=== PATIENT | female | born 1940 | race Caucasian/White ===

== ENCOUNTER → 2018-11-05 | Outpatient (REF) | payer MEDICARE, MEDICAID ==
[~2018-11-05] MED LIST: ADULT ASPIRIN L81 MG; ALEVE220 M2 PO; AMOXICILLIN/CL875 MG PO; BENZONATATE200 MG PO; CIPRO500 MG OR; CIPROFLOXACN500 MG PO; FISH OIL1000 MG PO; FLONASE NASAL50 MCG; LISINOPRIL10 MG PO; MULTI OR; PYRIDIUM200 MG OR; PYRIDIUM200 MG PO; SIMVASTATIN40 MG PO
[2018-11-05 13:15] LABS: HEMATOCRIT 44.3 % (37.0-47.0); HEMOGLOBIN 14.4 g/dl (12.0-16.0); IMMATURE GRANULOCYTES 0.3 % (0.0-5.0); MEAN CELL VOLUME 93.5 fL CALC (80.0-100.0); MEAN CORPUSCULAR HGB 30.4 pG CALC (26.0-32.0); MEAN CORPUSCULAR HGB CONC 32.5 g/L CALC (32.0-36.0); NEUT# 5.17 thou/uL (2.00-7.15); RED BLOOD COUNT 4.74 mill/uL (4.20-5.60); RED CELL DISTRI WIDTH 12.7 % (11.5-15.5)
== END | disposition home or self-care (01) ==
LOC: LAB 11:06
PROVIDERS: ATTEND Nurse Practitioner Family
DX: I10 Essential (primary) hypertension (principal); R19.7 Diarrhea, unspecified

== ENCOUNTER 2020-08-06 17:47 | Inpatient (IN) | payer MEDICARE, MEDICAID ==
[~2020-08-06] VITALS: Ht 160 cm; Wt 81.0 kg
--- NOTE | 2020-08-06 17:47 | NUR ---
PT TO ROOM VIA EMS. AOX4 SATURATED IN URINE.
--- NOTE | 2020-08-06 18:30 | NUR ---
TREATMENTS COMPLETED. PT BED BATH COMPLETED. CLEAN GOWN PLACED AND LINENS CHANGED.
--- NOTE | 2020-08-06 19:00 | NUR ---
GAVE REPORT TO AG NURSE AWARE OF UNCOMPLETE MED REC
[2020-08-06 19:06] LABS: HEMATOCRIT 44.8 % (37.0-47.0); HEMOGLOBIN 14.8 g/dl (12.0-16.0); IMMATURE GRANULOCYTES 0.2 % (0.0-5.0); MEAN CELL VOLUME 90.7 fL CALC (80.0-100.0); NEUT# 7.22 thou/uL (2.00-7.15); RED BLOOD COUNT 4.94 mill/uL (4.20-5.60); RED CELL DISTRI WIDTH 12.8 % (11.5-15.5)
[2020-08-06 19:31] LABS: ALBUMIN 4.2 g/dL (3.2-5.0); ALKALINE PHOSPHATASE 51 u/l (38-126); ANION GAP 16 (6-22 (CALC)); BUN 21 mg/dL (8-23); BUN/CREATININE RATIO 22 (12-20 (CALC)); CARBON DIOXIDE 22 mmol/l (22-30); CHLORIDE 99 mmol/l (95-108); CPK 398 u/l (30-165); ETHYL ALCOHOL 0 mg/dl (0-30); GFR 53 ML/MIN (>=60 (CALC)); GFR FOR AFR.AMER. > 60 ML/MIN (>=60 (CALC)); LIPASE 46 u/l (23-300); MAGNESIUM 1.6 mg/dL (1.6-2.3); POTASSIUM 4.6 mmol/l (3.5-5.1); SODIUM 132 mmol/l (137-146); TOTAL PROTEIN 7.8 g/dL (6.3-8.2)
[2020-08-06 19:32] LABS: SGOT/AST 53 u/l (9-36)
[2020-08-06 19:34] LABS: ACT PARTIAL THROMBO TIME 28.1 SECONDS (20.0-32.5); INTERNATIONAL NORMALIZED RATIO 1.1 RATIO (0.7-1.3); PROTHROMBIN TIME 11.2 SECONDS (9.0-12.5)
--- NOTE | 2020-08-06 20:23 | NUR ---
W/D SKIN SR NO ST T CHANGES A/OX3 SPEECH CLEAR LAVERN GUARDADO 2CMS
--- NOTE | 2020-08-06 21:35 | NUR ---
SR NO ECTOPY GCS REMAINS UNCHANGES AT 15 SPEECH CLEAR NO FOCAL DEFICITS
--- NOTE | 2020-08-06 22:23 | NUR ---
W/D SKIN SR NO ECTOPY SPEECH CLWEAR NO FOCAL DEFICITS GCS 15 MAEW
--- NOTE | 2020-08-06 23:08 | NUR ---
W/P/D SKIN DENIES PAIN MOVES HEAD WUITH NO DISCOMFORT SR NO ECTOPY
--- NOTE | 2020-08-07 00:36 | NUR ---
W/P/D SKIN IV NS INFUSING 175CC/HR WITH NO REMARK DENIES PAIN NO SOB
--- NOTE | 2020-08-07 01:24 | NUR ---
NASAL SWAB SPEC COLLECTED
[2020-08-07 01:52] LABS: URINE BILIRUBIN - DIPSTICK NEGATIVE (NEGATIVE); URINE BLOOD DIPSTICK MODERATE (NEGATIVE); URINE COLOR YELLOW; URINE GLUCOSE - DIPSTICK NEGATIVE (NEGATIVE); URINE KETONE 15 mg/dL (NEGATIVE); URINE PROTEIN - DIPSTICK 100 mg/dL (NEG-TRACE); URINE SPECIFIC GRAVITY >=1.030; URINE UROBILINOGEN - DIPSTICK 0.2 E.U./dL (0.2)
[2020-08-07 01:59] LABS: URINE NITRITE - DIPSTICK POSITIVE (Negative)
[2020-08-07 02:00] LABS: URINE LEUK ESTERASE NEGATIVE (NEGATIVE)
[2020-08-07 02:01] LABS: URINE BACTERIA MANY hpf; URINE EPITHELIAL CELLS MODERATE EPI/hpf (0-FEW)
--- NOTE | 2020-08-07 02:35 | NUR ---
PT INCONTINENT OF SM SOFT BROWN STOOL.PERICARE
--- NOTE | 2020-08-07 04:09 | NUR ---
report received from SARAH Montana RN
--- NOTE | 2020-08-07 04:16 | NUR ---
PHONE REPORT TO NURSE GIN
--- NOTE | 2020-08-07 04:25 | NUR ---
PT TRANSPORTED TO ICU VIA STRETCHER ON TELE IN STABLE CONDITION
--- NOTE | 2020-08-07 04:52 | NUR ---
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
[2020-08-07 05:00] VITALS: BP 151/72
--- NOTE | 2020-08-07 06:45 | NUR ---
RECIEVED REPORT FROM ALEKSEY GREENFIELD. ASSUMED PT CARE.
[2020-08-07 08:30] VITALS: BP 168/73
--- NOTE | 2020-08-07 08:30 | NUR ---
PT A&OX4, ABLE TO MAKE NEEDS KNOWN. RESPIRATIONS EVEN/UNLABOERED, SA02@88% ON 3LPM/NC. LS CLEAR/DIMINISHED. ABDOMEN SOFT, NON-TENDER. PT INC OF B&B WITH PUREWICK IN PLACE. 20G TO RFA INFUSING NS@100ML/HR, NO S/S OF INFILTRATION. PT REMAIN SR ON TELEMETRY, DENIES CP, SOB OR DISTRESS AT THIS TIME. COVID PRECAUTIONS IN PLACE. CALL LIGHT IN REACH. WILL MONITOR.
--- NOTE | 2020-08-07 09:34 | NUR ---
DR. DE LEON AT BEDSIDE FOR ASSESSMENT AND TO DISCUSS PLAN OF CARE. NEW ORDERS RECIEVED. PT REQUESTED TO CHANGE STATUS TO DNR. REQUEST GRANTED.
[2020-08-07 10:25] LABS: HEMATOCRIT 50.4 % (37.0-47.0); HEMOGLOBIN 15.6 g/dl (12.0-16.0); IMMATURE GRANULOCYTES 0.2 % (0.0-5.0); MEAN CORPUSCULAR HGB 30.1 pG CALC (26.0-32.0); NEUT# 6.84 thou/uL (2.00-7.15); RED BLOOD COUNT 5.18 mill/uL (4.20-5.60)
[2020-08-07 10:27] LABS: MEAN CELL VOLUME 97.3 fL CALC (80.0-100.0)
[2020-08-07 10:29] LABS: ANION GAP 16 (6-22 (CALC)); BUN 20 mg/dL (8-23); BUN/CREATININE RATIO 23 (12-20 (CALC)); CARBON DIOXIDE 20 mmol/l (22-30); CHLORIDE 103 mmol/l (95-108); CREATININE 0.9 mg/dL (0.5-1.0); GFR 60 ML/MIN (>=60 (CALC)); GFR FOR AFR.AMER. > 60 ML/MIN (>=60 (CALC)); SODIUM 135 mmol/l (137-146)
--- NOTE | 2020-08-07 10:30 | NUR ---
CXR AT BEDSIDE, PT TOLERATED WELL.
--- NOTE | 2020-08-07 11:49 | NUR ---
PT RESTING IN BED, MEAL TRAY SET UP. NO DISTREE NOTED.
--- NOTE | 2020-08-07 12:09 | NUR ---
LAB AT BEDSIDE FOR BLOOD DRAW. PT TOLERATED WELL.
--- NOTE | 2020-08-07 13:24 | NUR ---
FAMILY CALLED, PT GIVEN PORTABLE PHONE.
--- NOTE | 2020-08-07 13:38 | NUR ---
O.T. SCREENED PATIENT AND PATIENT MAY BENEFIT FROM P.T. AND O.T. EVAL ONCE MEDICALLY STABLE.
--- NOTE | 2020-08-07 14:39 | NUR ---
PT AT BEDSIDE FOR THERAPY CONSULT.
--- NOTE | 2020-08-07 15:15 | NUR ---
PT C/O NON-RADIATING CP 12/19. EKG ORDERED.
--- NOTE | 2020-08-07 15:19 | NUR ---
REPORT RECEIVED FROM EILEENRN
--- NOTE | 2020-08-07 15:42 | NUR ---
EKG, NSR. REPORT CALLED TO TAMAR MORA. PT TO BE TRANSFERRED TO [facility] RM#[id number]
--- NOTE | 2020-08-07 16:25 | NUR ---
PT ARRIVED TO MED/SURG ROOM 283 IN STABLE CONDITION VIA WHEELCHAIR ACCOMPANIED BY SANGEETHA SAVAGE;PT AMBULATED WITH A WEAK GAIT TO BEDSIDE;WT AND VS OBTAINED BY SANGEETHA MAURICE;PT A&O X3, ORIENTED TO ROOM AND CALL LIGHT SYSTEM;PT DENIES ANY CURRENT PAIN OR DISCOMFORTS,PAIN SCALE AND REPORTING EDUCATED;RESPIRATIONS SHALLOW ON O2 @ 3L VIA NC, PT IS NOT HOME OXYGEN DEPENDENT;NON-PRODUCTIVE COUGH AT TIMES;ABDOMEN DISTENDED/SOFT ON PALPATION AND ACTIVE IN ALL 4 QUADRANTS,LAST BM 08/07/20;PUREWICK CATHETER IN PLACE FOR INCONTINENCE;WEAK PEDAL PULSES;ABRASION NOTED RT ELBOW AND RIGHT KNEE, MULTIPLE BRUSIES NOTED THROUGHOUT;EMS # 20G TO RFA INFUSING NS @ 125ML/HR,SITE APPEARS HEALTHY;TELE MONITORING IN PLACE;PT REMAINS IN AIR/CONTACT PRECAUTIONS FOR COVID19 TESTING;PT DENIES ANY ADDITIONAL NEEDS AT THIS TIME AND IS ENCOURAGED TO CALL FOR ASSISTANCE IF NEEDED;FALL PRECAUTIONS IN PLACE WITH BED IN THE LOWEST POSITION AND CALL LIGHT IN REACH;WILL CONTINUE TO MONITOR
[2020-08-07 16:58] VITALS: BP 171/71
[2020-08-07 17:23] VITALS: BP 160/79
--- NOTE | 2020-08-07 19:27 | NUR ---
PT RESTING IN BED, NO SIGNS OF DISTRESS NOTED, RESP EVEN AND UNLABORED. DISCUSSED POC, PT ALERT AND ORIENTED X3, NOTED MULTIPLE BRUISES TO EXTREMETIES. SKIN TEAR TO R ELBOW. ASSESSMENT COMPLETED, CALL LIGHT IN REACH, PT MEDICATED PER MAR. CALL LIGHT IN REACH,CONTINUE TO MONITOR.
[2020-08-07 19:50] VITALS: BP 137/83
--- NOTE | 2020-08-08 | NUR ---
REPORT RECEIEVED FOR ALEKSEY BENITEZ
[2020-08-08 00:10] VITALS: BP 175/80
--- NOTE | 2020-08-08 03:49 | NUR ---
PT IS LAYING IN BED IN SEMI CAMPBELL, SLEEPING. NO S/SX OF DISTRESS OR DISCOMFORT OBSERVED AT THIS TIME, WILL CONITINUE TO MONITOR FOR COMFORT AND SAFETY.
[2020-08-08 03:56] VITALS: BP 168/76
[2020-08-08 05:33] LABS: HEMOGLOBIN 14.4 g/dl (12.0-16.0); IMMATURE GRANULOCYTES 0.4 % (0.0-5.0); MEAN CELL VOLUME 92.7 fL CALC (80.0-100.0); MEAN CORPUSCULAR HGB 30.1 pG CALC (26.0-32.0); MEAN CORPUSCULAR HGB CONC 32.5 g/dL CAL (32.0-36.0); NEUT# 6.24 thou/uL (2.00-7.15); RED BLOOD COUNT 4.78 mill/uL (4.20-5.60); RED CELL DISTRI WIDTH 12.6 % (11.5-15.5)
[2020-08-08 05:40] LABS: HEMATOCRIT 44.3 % (37.0-47.0)
[2020-08-08 05:46] LABS: ALBUMIN 3.4 g/dL (3.2-5.0); ALKALINE PHOSPHATASE 48 u/l (38-126); ANION GAP 13 (6-22 (CALC)); BILIRUBIN, TOTAL 0.8 mg/dL (0.0-1.4); BUN 15 mg/dL (8-23); BUN/CREATININE RATIO 20 (12-20 (CALC)); CARBON DIOXIDE 21 mmol/l (22-30); CHLORIDE 102 mmol/l (95-108); CREATININE 0.7 mg/dL (0.5-1.0); GFR > 60 ML/MIN (>=60 (CALC)); GFR FOR AFR.AMER. > 60 ML/MIN (>=60 (CALC)); POTASSIUM 4.2 mmol/l (3.5-5.1); SGOT/AST 59 u/l (9-36); SODIUM 131 mmol/l (137-146); TOTAL PROTEIN 6.3 g/dL (6.3-8.2)
[2020-08-08 08:09] VITALS: BP 167/61
[2020-08-08 11:05] VITALS: BP 157/63
[2020-08-08 15:00] VITALS: BP 142/56
[2020-08-08 19:35] VITALS: BP 149/60
--- NOTE | 2020-08-08 20:00 | NUR ---
RECIEVED REPROT FROM ELLA. PT LAYING IN SEMI-FOWLERS, UPON ENTERING ROOM. INTRODUCED SELF TO PT AND POC DISCUSSED. PT IS A/O X3. ASSESSMENT COMPLETED & VS OBTAINED. PT ON O2 @ 3L/MIN VIA NC. RESPIRATION ARE EVEN & NON LABORED. PT REPORTS SOB ON EXCERTION. TELE MONITORING D/C TODAY- ORDERED MD ORDER VERIFIED. NORMAL S1& S2 HEART SOUNDS W/ REGULAR RATE & RHYTHM. ACTIVE BS X 4 QUADS- HAD BM DURING SHIFT CHANGE- LOOSE W/ FOUL SMELL NOTED- STOOL SAMPLE COLLECT AND SENT TO LAB FOR TESTING- RESULTS PENDING. BILAT RADIAL & PEDAL PULSES ARE PRESENT, EQUAL & STRONG. #20G PIV IN LFA W/ NS @ 125 ML/HR- SITE IS PATENT- CLEAN, DRY, AND INTACT. NO S/SX OF DISTRESS OR DISCOMFORT EXPRESSED OR OBSERVE. ALL SAFETY PRECAUTIONS AND ISOLATION ARE IN PLACE, CALL LIGHT IN REACH. WILL CONTINUE TO MONITOR FOR COMFORT AND SAFETY.
[2020-08-09 03:50] VITALS: BP 158/65
--- NOTE | 2020-08-09 04:00 | NUR ---
PT RESTING IN BED, NO S/SX OF DISTRESS OR DISCOMFORT EXPRESSE OR OBSERVED AT THIS TIME, WILL CONTINUE TO MONITOR FOR COMFORT AND SAFETY.
--- NOTE | 2020-08-09 08:30 | NUR ---
PT RESTING IN BED gOT OOB TO CHAIR WITH 2 ASSISTS vss NO COMPLAINTS. DENIES CP OR sob
--- NOTE | 2020-08-09 12:00 | NUR ---
PT oob TO CHAIR HAD LARGE AMOUNT OF STOOL IN CHAIR AND FLOOR c-DIFF SENT TO LAB PT DENIES CP OR SOB RIGHT ARM WITH LARGE REDDENED SWOLLEN AREA ----HAD IV INFILTRATE YESTERDAY.
[2020-08-09 14:55] VITALS: BP 127/61
[2020-08-09 19:45] VITALS: BP 114/60
--- NOTE | 2020-08-09 20:20 | NUR ---
Nurse and HORIZONTAL BORING MILL OPERATOR cleaned pt and changed linen. Pt resting in bed without S/S of discomfort.
--- NOTE | 2020-08-10 00:27 | NUR ---
Pt cleaned up by BOILING HOUSE HAND after having BM, now resting comfortably.
--- NOTE | 2020-08-10 03:27 | NUR ---
Pt was awake when nurse rounded, asked for water refill. Nurse helped her with water and she settled back in to rest.
[2020-08-10 05:19] LABS: HEMATOCRIT 40.3 % (37.0-47.0); HEMOGLOBIN 13.1 g/dl (12.0-16.0); IMMATURE GRANULOCYTES 0.4 % (0.0-5.0); MEAN CELL VOLUME 90.2 fL CALC (80.0-100.0); MEAN CORPUSCULAR HGB 29.3 pG CALC (26.0-32.0); MEAN CORPUSCULAR HGB CONC 32.5 g/dL CAL (32.0-36.0); NEUT# 3.22 thou/uL (2.00-7.15); RED BLOOD COUNT 4.47 mill/uL (4.20-5.60); RED CELL DISTRI WIDTH 12.3 % (11.5-15.5)
[2020-08-10 05:29] VITALS: BP 153/62
[2020-08-10 05:33] LABS: ALKALINE PHOSPHATASE 48 u/l (38-126); BUN 15 mg/dL (8-23); BUN/CREATININE RATIO 18 (12-20 (CALC)); C-REACTIVE PROTEIN 4.9 mg/dL (0-0.9); CARBON DIOXIDE 24 mmol/l (22-30); CHLORIDE 102 mmol/l (95-108); CREATININE 0.8 mg/dL (0.5-1.0); GFR > 60 ML/MIN (>=60 (CALC)); GFR FOR AFR.AMER. > 60 ML/MIN (>=60 (CALC)); SGOT/AST 71 u/l (9-36); SODIUM 132 mmol/l (137-146); TOTAL PROTEIN 5.4 g/dL (6.3-8.2)
[2020-08-10 05:36] LABS: ALBUMIN 2.7 g/dL (3.2-5.0); ANION GAP 9 (6-22 (CALC)); BILIRUBIN, TOTAL 0.4 mg/dL (0.0-1.4); POTASSIUM 3.3 mmol/l (3.5-5.1)
[2020-08-10 08:00] VITALS: BP 163/60
--- NOTE | 2020-08-10 09:00 | NUR ---
PT AWAKE, ALERT, ORIENTED X 3. LUNGS CLEAR BUT DECREASED THROUGHOUT, USES 2 LPM NC. NO COMPLAINT SHORTNESS OF BREATH. PT IS INCONTINENT OF URINE, CHANGED NEEDED BY CAR INSPECTOR.
[2020-08-10 15:20] VITALS: BP 134/60
--- NOTE | 2020-08-10 18:33 | NUR ---
IVF TURNED DOWN TO KVO. TYLENOL PROVIDED ORDERED FOR RIGHT SHOULDER ARTHRITIS PAIN.
[2020-08-10 20:00] VITALS: BP 145/78
[2020-08-11 04:00] VITALS: BP 170/72
[2020-08-11 05:28] LABS: HEMATOCRIT 42.7 % (37.0-47.0); HEMOGLOBIN 14.1 g/dl (12.0-16.0); MEAN CELL VOLUME 89.1 fL CALC (80.0-100.0); MEAN CORPUSCULAR HGB 29.4 pG CALC (26.0-32.0); RED BLOOD COUNT 4.79 mill/uL (4.20-5.60); RED CELL DISTRI WIDTH 12.2 % (11.5-15.5)
[2020-08-11 05:41] LABS: ANION GAP 13 (6-22 (CALC)); BUN 9 mg/dL (8-23); BUN/CREATININE RATIO 14 (12-20 (CALC)); CARBON DIOXIDE 22 mmol/l (22-30); CHLORIDE 103 mmol/l (95-108); CREATININE 0.7 mg/dL (0.5-1.0); GFR > 60 ML/MIN (>=60 (CALC)); GFR FOR AFR.AMER. > 60 ML/MIN (>=60 (CALC)); SODIUM 134 mmol/l (137-146)
--- NOTE | 2020-08-11 07:20 | NUR ---
REPORT RECEIVED FROM ALEKSEY LAWSON
[2020-08-11 09:14] VITALS: BP 158/88
--- NOTE | 2020-08-11 09:15 | NUR ---
PT RESTING IN SEMI FOWLERS POSITION,A&O X3;VS OBTAINED AND ASSESSMENT COMPLETED;PT DENIES ANY CURRENT PAIN OR DISCOMFORTS,PAIN SCALE AND REPORTING EDUCATED;RESPIRATIONS SHALLOW ON O2 @ 2L VIA NC, DIMINISHED LUNG SOUNDS NOTED;NON-PRODUCTIVE COUGH;ABDOMEN SOFT ON PALPATION AND ACTIVE IN ALL 4 QUADRANTS;WEAK PEDAL PULSES;#20G TO LEFT HAND INFUSING NS WITH EASE PER ORDER;PT REMAINS IN AIR/CONTACT PRECAUTIONS DUE TO COVID 19 DX;PT DENIES ANY ADDITIONAL NEEDS AND IS ENCOURAGED TO CALL FOR ASSISTANCE IF NEEDED;CALL LIGHT IN REACH;WILL CONTINUE TO MONITOR
--- NOTE | 2020-08-11 11:45 | NUR ---
08/10/2020 Patient is seen for follow up Tx. Her O2 sats are 96% on oxygen. The patient is able to sit EOB but with max assist of 1. She attempted to stand x 3 but is absolutely unable. 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 She is max assist and her spouse is not in good health compromising a discharge plan for home at this time. She is also limited by pain from her recent fall
--- NOTE | 2020-08-11 11:50 | NUR ---
PT RESTING IN SEMI FOWLERS POSITION;RESPIRATIONS REMAIN EVEN AND UNLABORED ON O2 @ 2L VIA NC;PT REPORTS LOWER BACK PAIN RATING 7/10 ON THE PAIN SCALE AND MEDICATED WITH SCHEDULED TYLENOL 650MG PO;IV FLUIDS INFUSING WITH EASE PER ORDER AND ABX STARTED AT THIS TIME;PT DENIES ANY ADDITIONAL NEEDS;CALL LIGHT IN REACH;WILL CONTINUE TO MONITOR
[2020-08-11 14:55] VITALS: BP 151/70
--- NOTE | 2020-08-11 15:06 | NUR ---
PT note Patient is seen for therex to the bilateral LEs including calf stretch and resisted knee/ hip extension x 20 reps each. She has a lot of crepitus in the right knee she tells me was not occuring before her fall. She was able to transfer to sitting and then to full stand x 1 but with max assist of 1. Although O2 is in place she was dyspneic x 2 and had to return to semi fowlers position to recover. Her Am pac improved to 9 and she was able to achieve standing despite dyspnea
--- NOTE | 2020-08-11 16:30 | NUR ---
PT RESTING IN SEMI FOWLERS POSITION;RESPIRATIONS EVEN AND UNLABORED ON O2 @ 2L VIA NC;PT DENIES ANY CURRENT PAIN OR DISCOMFORTS;IV FLUIDS INFUSING WITH EASE;PT RE-POSITIONED FOR COMFORT;PT DENIES ANY ADDITIONAL NEEDS AT THIS TIME;ENCOURAGED TO CALL FOR ASSISTANCE IF NEEDED;CALL LIGHT IN REACH;WILL CONTINUE TO MONITOR
[2020-08-11 19:30] VITALS: BP 153/66
--- NOTE | 2020-08-11 20:00 | NUR ---
PATIENT RESTING IN BED AT THIS TIME-AWAKE ALERT AND ORIENTED. O2 VIA NASAL CANNULA IN PLACE AT 2LPM. IVF PATENT AND INFUSING IN LEFT HAND SITE AT 20CC/HR. SITE IS HEALTHY AT THIS TIME. PATIENT ON ISOLATION IN NEG PRESSURE ROOM FOR COVID. CALL LIGHT IN REACH. WILL CONT TO MONITOR.
--- NOTE | 2020-08-12 01:14 | NUR ---
PATIENT RESTING IN BED-CAN'T SLEEP DUE TO GENERALIZED DISCOMFORT. MEDICATED WITH LORTAB 5/325MG PO. PATIENT REMAINS ON ISOLATION IN NEG PRESSURE ROOM FOR COVID. IVF PATENT AND INFUSING VIA LEFT HAND SITE AT KVO RATE. CALL LIGHT IN REACH. WILL CONT TO MONITOR.
[2020-08-12 04:00] VITALS: BP 158/70
--- NOTE | 2020-08-12 04:51 | NUR ---
PATIENT INCONT OF URINE. PERICARE PROVIDED WITH SOAP AND WATER. BARRIER CREAM APPLIED TO REDDENED PERINEAL AREA. LINENS WERE CHANGED. PATIENT REMAINS WITH O2 VIA NASAL CANNULA AT 2LPM.IV SITE TO LEFT HAND INTACT WITH IVF AT KVO RATE OF 20CC/HR. SITE REMAINS HEALTHY. REMAINS ON ISOLATION IN NEG PRESSURE ROOM. CALL LIGHT IN REACH. WILL CONT TO MONITOR.
[2020-08-12 05:27] LABS: HEMATOCRIT 40.2 % (37.0-47.0); HEMOGLOBIN 13.6 g/dl (12.0-16.0); IMMATURE GRANULOCYTES 0.4 % (0.0-5.0); MEAN CELL VOLUME 87.2 fL CALC (80.0-100.0); MEAN CORPUSCULAR HGB 29.5 pG CALC (26.0-32.0); MEAN CORPUSCULAR HGB CONC 33.8 g/dL CAL (32.0-36.0); NEUT# 4.51 thou/uL (2.00-7.15); RED BLOOD COUNT 4.61 mill/uL (4.20-5.60); RED CELL DISTRI WIDTH 12.1 % (11.5-15.5)
[2020-08-12 05:48] LABS: ALBUMIN 2.9 g/dL (3.2-5.0); ALKALINE PHOSPHATASE 58 u/l (38-126); ANION GAP 9 (6-22 (CALC)); BILIRUBIN, TOTAL 0.5 mg/dL (0.0-1.4); BUN 8 mg/dL (8-23); BUN/CREATININE RATIO 12 (12-20 (CALC)); C-REACTIVE PROTEIN 6.1 mg/dL (0-0.9); CARBON DIOXIDE 27 mmol/l (22-30); CHLORIDE 102 mmol/l (95-108); CREATININE 0.7 mg/dL (0.5-1.0); GFR > 60 ML/MIN (>=60 (CALC)); GFR FOR AFR.AMER. > 60 ML/MIN (>=60 (CALC)); POTASSIUM 3.6 mmol/l (3.5-5.1); SGOT/AST 65 u/l (9-36); SODIUM 134 mmol/l (137-146); TOTAL PROTEIN 5.6 g/dL (6.3-8.2)
--- NOTE | 2020-08-12 07:20 | NUR ---
REPORT RECEIVED FROM ALEKSEY ADAMES
[2020-08-12 08:45] VITALS: BP 147/74
--- NOTE | 2020-08-12 08:45 | NUR ---
PT RESTING IN SEMI FOWLERS POSITION,A&O X3;VS OBTAINED AND ASSESSMENT COMPLETED;PT DENIES ANY CURRENT PAIN OR DISCOMFORTS,PAIN SCALE AND REPORTING EDUCATED;RESPIRATIONS SHALLOW ON O2 @ 2L VIA NC, NON-PRODUCTIVE COUGH AT TIMES;ABDOMEN SOFT ON PALPATION AND ACTIVE IN ALL 4 QUADRANTS;PT INCONTINENT OF BOWEL AND BLADDER;WEAK PEDAL PULSES;REDDENING NOTED TO COCCYX, SKIN OTHERWISE INTACT;#20G TO LEFT HAND INFUSING NS @ 20ML/HR,SITE APPEARS HEALTHY;PT REMAINS IN AIR/CONTACT PRECAUTIONS DUE TO COVID19 DX;PT DENIES ANY ADDITIONAL NEEDS AND IS ENCOURAGED TO CALL FOR ASSISTANCE IF NEEDED;FALL PRECAUTIONS IN PLACE WITH BED IN THE LOWEST POSITION AND CALL LIGHT IN REACH;WILL CONTINUE TO MONITOR
--- NOTE | 2020-08-12 11:50 | NUR ---
RESP PCR NASAL SWAB SENT TO LAB AT THIS TIME.
--- NOTE | 2020-08-12 11:55 | NUR ---
PT RESTING IN SEMI FOWLERS POSITION;RESPIRATIONS EVEN AND UNLABORED ON O2 @ 2L VIA NC;PT REPORTS COUGH AND REQUESTS COUGH MEDICATION, KELLY ANRP NOTIFIED OF REQUEST;IV SITE PATENT AND ABX STARTED AT THIS TIME;PT DENIES ANY ADDITIONAL NEEDS AND IS ENCOURAGED TO CALL FOR ASSISTANCE IF NEEDED;CALL LIGHT IN REACH;WILL CONTINUE TO MONITOR
--- NOTE | 2020-08-12 12:37 | NUR ---
PT MEDICATED WITH PRN ROBITUSSIN AC 10ML PO AT THIS TIME FOR COUGH;WILL CONTINUE TO MONITOR
[2020-08-12 15:15] VITALS: BP 153/66
--- NOTE | 2020-08-12 15:35 | NUR ---
PHYSICAL THERAPY AT BEDSIDE
--- NOTE | 2020-08-12 16:25 | NUR ---
PT LYING SUPINE IN BED. O2 85% ON 1L AT REST. O2 INCREASED TO 2L, SATS 89-90% PT STATES SHE IS MORE SHORT OF BREATH AND COUGHING A LOT. ATTEMPTED TO SIT PT ON EDGE OF BED. PT UNABLE TO COMPLETE WITH MAX ASSISTANCE. O2 DROPPED TO 85% ASSISTED PT BACK INTO SUPINE. TEMP 99.3. INFORMED NURSING OF FINDINGS. SN AT BEDSIDE WHEN THERAPIST LEFT.
--- NOTE | 2020-08-12 16:50 | NUR ---
PT RESTING IN SEMI FOWLERS POSITION;RESPIRATIONS EVEN AND UNLABORED ON 02 @ 2L VIA NC;PT DENIES ANY CURRENT PAIN OR DISCOMFORTS;IV SITE PATENT INFUSING NS WITH EASE PER ORDER;PT DENIES ANY ADDITIONAL NEEDS AT THIS TIME AND IS ENCOURAGED TO CALL FOR ASSISTANCE IF NEEDED;CALL LIGHT IN REACH;WILL CONTINUE TO MONITOR
[2020-08-12 19:00] VITALS: BP 173/75
--- NOTE | 2020-08-12 20:00 | NUR ---
PATIENT RESTING IN BED AT THIS TIME ON ISOLATION IN NEG PRESSURE ROOM FOR COVID. AWAKE ALERT AND ORIENTED TO PERSON AND PLACE. MORE ALERT TONIGHT.INCONT OF URINE AND CLEANED UP BY POLE SHAVER AND BARRIER CREAM APPLIED TO BUTTOCKS AND PERINEAL AREA FOR REDNESS. O2 VIA NASAL CANNULA IN PLACE AT 2LPM. IV SITE TO LEFT HAND INTACT WITH IVF PATENT AND INFUSING AT 20CC/HR. SITE REMAINS HEALTHY AT THIS TIME. SAFETY PRECAUTIONS REINFORCED. CALL LIGHT IN REACH. WILL CONT TO MONITOR.
--- NOTE | 2020-08-12 23:00 | NUR ---
PATIENT RESTING IN BED AT THIS TIME WITH HOB ELEVATED. EASY TO AROUSE. PATIENT WITH NON-PRODUCTIVE COUGH AT THIS TIME. O2 VIA NASAL CANNULA IN PLACE. PATIENT MEDICATED WITH DECADROM 6MG PO ORDERED AND AZITHROMYCIN 500MG IVPB HUNG ORDERED VIA LEFT HAND IV SITE. SITE REMAINS HEALTHY AT THIS TIME. MEDICATED FOR COUGH WITH ROBITUSSIN AC ORDERED AND WITH LORTAB 5/325 FOR GENERALIZED DISCOMFORT. PATIENT REMAINS ON ISOLATION IN NEG PRESSURE ROOM FOR COVID. SAFETY PRECAUTIONS REINFORCED. CALL LIGHT IN REACH. WILL CONT TO MONITOR,.
[2020-08-13] VITALS (11 sets, daily range): BP systolic 132–200; BP diastolic 62–94
--- NOTE | 2020-08-13 01:54 | NUR ---
PATIENT RESTING IN BED AT THIS TIME WITH O2 VIA NASAL CANNULA IN PLACE AT 2LPM-O2 SAT IS 85%. PATIENT IS AWAKE ALERT AND ORIENTEDX2. O2 INCREASED UP TO 5LPM VIA NASAL CANNULA-O2 SAT IS NOW AT 89-90%. RT CALLED TO EVAL PATIENT. PATIENT CONT TO HAVE NON-PRODUCTIVE COUGH. LUNGS ARE CLEAR BUT DIMINISHED-POOR INSPIRATORY EFFORT. INSTRUCTED PATIENT ON USE OF IS-WILL NEED REINFORCEMENT. PATIENT INCONT OF LARGE AMT OF URINE. PATIENT WAS GIVEN NALLELY-CARE WITH SOAP AND WATER AND BARRIER CREAM WAS APPLIED TO REDDENED AREAS. PADS WERE CHANGED. PATIENT WAS REPOSITIONED. ENCOURAGED INCREASED ACTIVITY. SAFETY PRECAUTIONS REINFORCED. CALL LIGHT IN REACH. WILL CONT TO MONITOR.
--- NOTE | 2020-08-13 02:22 | NUR ---
RT HERE AND JN MEEHAN. O2 WAS CHANGED FROM O2 NASAL CANNULA TO O2 HIGH FLOW AT 8LPM-O2 SAT 93% AT THIS TIME. WILL CONT TO FOLLOW.
--- NOTE | 2020-08-13 04:50 | NUR ---
PATIENT RESTING IN BED AT THIS TIME WITH O2 VIA NASAL CANNULA IN PLACE AT 8LPM HIGH FLOW. O2 SAT IS 94% WHEN AWAKE. WHEN PATIENT STARTS TO DOOZE OFF O2 SATS DECREASES INTO UPPER 80"S. UNABLE TO TITRATE DOWN AT THIS TIME. PATIENT IS AFEBRILE AT THIS TIME. IVF PATENT AND INFUSING VIA LEFT HAND SITE AT 20CC/HR. PATIENT IS DRY AT THIS TIME. LABS WERE DRAWN. SAFETY PRECAUTIONS REINFORCED. CALL LIGHT IN REACH. WILL CONT TO MONITOR.
[2020-08-13 05:27] LABS: HEMATOCRIT 41.8 % (37.0-47.0); HEMOGLOBIN 14.1 g/dl (12.0-16.0); MEAN CELL VOLUME 87.3 fL CALC (80.0-100.0); MEAN CORPUSCULAR HGB 29.4 pG CALC (26.0-32.0); MEAN CORPUSCULAR HGB CONC 33.7 g/dL CAL (32.0-36.0); RED BLOOD COUNT 4.79 mill/uL (4.20-5.60); RED CELL DISTRI WIDTH 12.1 % (11.5-15.5)
[2020-08-13 05:33] LABS: ANION GAP 12 (6-22 (CALC)); BUN 8 mg/dL (8-23); BUN/CREATININE RATIO 13 (12-20 (CALC)); CARBON DIOXIDE 28 mmol/l (22-30); CHLORIDE 99 mmol/l (95-108); CREATININE 0.6 mg/dL (0.5-1.0); GFR > 60 ML/MIN (>=60 (CALC)); GFR FOR AFR.AMER. > 60 ML/MIN (>=60 (CALC)); POTASSIUM 3.8 mmol/l (3.5-5.1); SODIUM 136 mmol/l (137-146)
--- NOTE | 2020-08-13 06:55 | NUR ---
REPORT RECEIVED FROM ALEKSEY ADAMES.
--- NOTE | 2020-08-13 08:10 | NUR ---
PT RESTING IN SEMI FOWLERS POSITION,A&O X3;VS OBTAINED AND ASSESSMENT COMPLETED, CURRENT BP 175/76 HR 80;ALL MORNING MEDICATIONS ADMINISTERED AT THIS TIME;PT DENIES ANY CURRENT PAIN OR DISCOMFORTS,PAIN SCALE AND REPORTING EDUCATED;RESPIRATIONS SHALLOW ON O2 @ 8L HIGH FLOW NC, NON-PRODUCTIVE COUGH NOTED;PT DEMONSTRATED PROPER USE OF I.S. AND ENCOURAGED TO USE 10X PER HOUR;PT MEDICATED WITH PRN ROBITUSSIN AC PER REQUEST;ABDOMEN SOFT ON PALPATION AND ACTIVE IN ALL 4 QUADRANTS;PT INCONTINENT OF BOWEL AND BLADDER, REDDENING NOTED TO COCCYX;WEAK PEDAL PULSES;#20G TO LEFT HAND INFUSIG NS @ 20ML/HR,SITE APPEARS HEALTHY;PT DENIES ANY ADDITIONAL NEEDS AT THIS TIME AND IS ENCOURAGED TO CALL FOR ASSISTANCE IF NEEDED;PT REMAINS IN AIR/CONTACT PRECAUTIONS FOR COVID19 DX;CALL LIGHT IN REACH;WILL CONTINUE TO MONITOR
--- NOTE | 2020-08-13 10:05 | NUR ---
PT RESTING IN SEMI FOWLERS POSITION;VS RE-CHECK RESULTING IN BP OF 156/94 HR 85 O2 93% ON O2 @ 8L HIGH FLOW NC;PT DENIES ANY CURRENT PAIN OR DISCOMFORTS;#20G STARTED TO RAC ON FIRST ATTEMPT BY THIS WRITTER FOR ORDERED CTA,PT TOLERATED WELL;PT DENIES ANY ADDITIONAL NEEDS;ENCOURAGED TO CALL FOR ASSISTANCE IF NEEDED;CALL LIGHT IN REACH;WILL CONTINUE TO MONITOR
--- NOTE | 2020-08-13 10:30 | NUR ---
PHYSICAL THERAPY AT BEDSIDE WORKING WITH PT
--- NOTE | 2020-08-13 10:45 | NUR ---
PT TRANSPORTED TO [facility] IN STABLE CONDITION VIA HOSPITAL BED ACCOMPANIED BY SANGEETHA MAURICE AND SANGEETHA LAWRENCE
--- NOTE | 2020-08-13 11:15 | NUR ---
Patient is seen for bed mobility including rolling STS. She is also seen for repeated sit to stand. She was only able to perfrom 3 reps and was limited by dyspnea. She is also limited by her left hemiplegia and is unable to raise her left arm. She demonstrated a strong cough but without secretion clearance. She requested BTB and was returned with max assist. Am Pac is unchanged and she would do well in [facility] for rehab
--- NOTE | 2020-08-13 11:15 | NUR ---
PT RETURNED BACK FROM XRAY IN STABLE CONDITION VIA HOSPITAL BED ACCOMPANIED BY SANGEETHA LAWRENCE AND SANGEETHA MAURICE;PT RE-POSITIONED INTO BED FOR COMFORT;IV SITE TO RAC FLUSHED AND PATENT NS STARTED @ 20ML/HR PER ORDER;#20G TO LEFT HAND REMOVED DUE TO EXPIRATION DATE WITH CATHETER INTACT;RESPIRATIONS REMAIN SHALLOW ON O2 @ 8L VIA HIGH FLOW NC, SATS 93% AT THIS TIME;PT DENIES ANY ADDITIONAL NEEDS;ENCOURAGED TO CALL FOR ASSISTANCE IF NEEDED;FALL PRECAUTIONS REMAIN IN PLACE WITH BED IN THE LOWEST POSITION AND CALL LIGHT IN REACH;WILL CONTINUE TO MONITOR
--- NOTE | 2020-08-13 12:20 | NUR ---
PT RESTING IN SEMI FOWLERS POSITION;RESPIRATIONS SHALLOW ON O2 @ 8L HIGH FLOW NC, O2 SATS MAINTAIN LOW 90'S;PT DENIES ANY CURRENT PAIN OR DISCOMFORTS;IV FLUIDS INFUSING WITH EASE TO RAC AND ABX STARTED AT THIS TIME;VS OBTAINED BP 200/69 HR 85 T 98.4 O2 92%;KELLY ANRP NOTIFIED OF ELEVATED BP;PT DENIES ANY ADDITIONAL NEEDS AT THIS TIME;ENCOURAGED TO CALL FOR ASSISTANCE IF NEEDED;FALL PRECAUTIONS IN PLACE WITH CALL LIGHT IN REACH;WILL CONTINUE TO MONITOR
--- NOTE | 2020-08-13 14:48 | NUR ---
RE-ASSESSMENT OF PT BLOOD PRESSURE RESULTING IN 171/89 HR 82, PT ASYMPTAMATIC AT THIS TIME;PT TO BE MEDICATED WITH PRN APRESOLINE 10MG IVP BY ALEKSEY BARKER;WILL CONTINUE TO MONITOR FOR EFFECTIVENESS
--- NOTE | 2020-08-13 16:10 | NUR ---
PT RESTING IN SEMI FOWLERS POSITION;RESPIRATIONS REMAIN SHALLOW ON O2 @ 8L HIGH FLOW NC;PT DENIES ANY CURRENT PAIN OR DISCOMFORTS;IV FLUIDS INFUSING WITH EASE TO RAC;BP RE-CHECK 152/67 HR 88;PT DENIES ANY ADDITIONAL NEEDS AND IS ENCOURAGED TO CALL FOR ASSISTANCE IF NEEDED;CALL LIGHT IN REACH;WILL CONTINUE TO MONITOR
--- NOTE | 2020-08-13 17:35 | NUR ---
PT RESTING IN SEMI FOWLERS POSITION;RESPIRATIONS EVEN AND UNLABORED ON O2 @ 8L VIA NC, PT MEDICATED WITH PRN ROBITUSSIN AC PO AT THIS TIME;BP RE-CHECK 161/34;PT DENIES ANY ADDITIONAL NEEDS;ENCOURAGED TO CALL FOR ASSISTANCE IF NEEDED;CALL LIGHT IN REACH;WILL CONTINUE TO MONITOR
--- NOTE | 2020-08-13 23:13 | NUR ---
PHYSICAL ASSESMENT COMPLETE. PT CURRENTLY DENIES PAIN OR DISCOMFORT. SCHEDULED MEDICATIONS AND PRN MEDICATION ADMINISTERED, SEE E-MAR. PT DENIES ANY NEEDS AT THIS TIME. PLAN OF CARE REVIEWED, PT DENIES QUESTIONS, VERBALIZES UNDERSTANDING. ITEMS WITHIN REACH, BED LOCKED IN LOW POSITION W/ BEDRAILS UP X2. CALL GABRIEL WITHIN REACH, AGREES TO CALL PRN.
--- NOTE | 2020-08-14 00:19 | NUR ---
PT LAYING IN BED WITH EYES CLOSED, APPEARS TO BE SLEEPING, APPEARS COMFORTABLE AND IN NO DISTRESS. RESPIRATIONS REGULAR AND UNLABORED. ITEMS REMAIN WITHIN REACH, CALL GABRIEL REMAINS WITHIN REACH. BED REMAINS LOCKED AND IN LOW POSITION WITH BEDRAILS UP X2. WILL CONTINUE TO MONITOR.
--- NOTE | 2020-08-14 03:56 | NUR ---
PT RESTING IN BED, NO SIGNS OF DISTRESS NOTED, RESP EVEN AND UNLABORED. PT VOICES NO NEEDS OR COMPLAINTS AT THIS TIME. CALL LIGHT IN REACH, CONTINUE TO MONITOR.
[2020-08-14 04:35] VITALS: BP 147/84
[2020-08-14 05:22] LABS: HEMATOCRIT 41.7 % (37.0-47.0); HEMOGLOBIN 14.1 g/dl (12.0-16.0); IMMATURE GRANULOCYTES 0.7 % (0.0-5.0); MEAN CELL VOLUME 87.6 fL CALC (80.0-100.0); MEAN CORPUSCULAR HGB 29.6 pG CALC (26.0-32.0); MEAN CORPUSCULAR HGB CONC 33.8 g/dL CAL (32.0-36.0); NEUT# 6.25 thou/uL (2.00-7.15); RED BLOOD COUNT 4.76 mill/uL (4.20-5.60); RED CELL DISTRI WIDTH 12.3 % (11.5-15.5)
[2020-08-14 05:34] LABS: ALBUMIN 2.9 g/dL (3.2-5.0); ALKALINE PHOSPHATASE 80 u/l (38-126); ANION GAP 8 (6-22 (CALC)); BILIRUBIN, TOTAL 0.6 mg/dL (0.0-1.4); BUN 17 mg/dL (8-23); BUN/CREATININE RATIO 22 (12-20 (CALC)); C-REACTIVE PROTEIN 7.9 mg/dL (0-0.9); CARBON DIOXIDE 32 mmol/l (22-30); CHLORIDE 101 mmol/l (95-108); CREATININE 0.7 mg/dL (0.5-1.0); GFR > 60 ML/MIN (>=60 (CALC)); GFR FOR AFR.AMER. > 60 ML/MIN (>=60 (CALC)); POTASSIUM 4.2 mmol/l (3.5-5.1); SGOT/AST 78 u/l (9-36); SODIUM 137 mmol/l (137-146); TOTAL PROTEIN 5.7 g/dL (6.3-8.2)
--- NOTE | 2020-08-14 07:30 | NUR ---
PATIENT AWAKE IN BED ALERT AND ORIENTED X 3. 02 REMAINS ON AT 8LHF. PATIENT STATES HER PAIN LEVEL IS A 3 OUT OF SCALE OF 0-10. PATIENT REMAINS IN AIRBOURNE ISOLATION AT THIS TIME. CALL LIGHT WITHIN REACH, SIDERAILS UP X 2 BABY MONITOR AND BED ALARM REMAINS ON. PATIENT DENIES ANY NEEDS AT THIS TIME. AUTOMOTIVE GENERATOR REPAIRER DONE SEE INTERVENTIONS.
--- NOTE | 2020-08-14 10:30 | NUR ---
PATIENT ROLLED UP ONTO RIGHT SIDE AT THIS TIME. PATIENT REFUSES TO BE PLACED IN PRONE POSITION. CLOTH BOLT BANDER NOTIFIED AND AGREED ROLLING SIDE TO SIDE IS ADEQUATE,
--- NOTE | 2020-08-14 12:30 | NUR ---
PATIENT IN BED AT THIS TIME EATING LUNCH. PATIENT STATES HER PAIN IS A 4 OUT OF 0-10. SIDERAILS UP X2 CALL LIGHT WITHIN REACH. O2 ON 8L HIGH FLOW.
[2020-08-14 15:00] VITALS: BP 162/90; BP 182/85
--- NOTE | 2020-08-14 15:59 | NUR ---
PATIENT RESTING IN BED AT THIS TIME. PAITENT DENIES ANY NEEDS AND SHOWS NO SIGNS OF SHORTNESS OF BREATH AT THIS TIME. PATIENT BUTTOCKS AND VAGINAL AREA REMAIN LIBIA AT THIS TIME AND NYSTATIN APPLIED ORDERED. CALL LIGHT IS WITHIN REACH SIDERAILS UP X 2. O2 REMAINS ON AT 8L HIGH FLOW.
[2020-08-14 19:10] VITALS: BP 148/67
--- NOTE | 2020-08-14 21:00 | NUR ---
PATIENT RESTING IN BED AT THIS TIME WITH O2 VIA NASAL CANNULA IN PLACE-HIGH FLOW AT 8LPM. PATIENT IS AWAKE ALERT AND ORIENTEDX3. PATIENT STATES THAT SHE IS FEELING BETTER TONIGHT. INCONT OF LARGE AMT OF URINE-PERICARE WITH SOAP AND WATER GIVEN. PERINEAL AREA IS EXCORIATED AND VERY RED. BARRIER CREAM APPLIED. NO BREIFS.PATIENT CONT TO HAVE NON-PRODUCTIVE COUGH-MEDICATED WITH ROBITUSSIN AC FOR COUGH. PATIENT REMAINS ON ISOLATION IN NEG PRESSURE ROOM FOR COVID. IV SITE TO RAC INTACT AND HEALTHY WITH IVF NS PATENT AND INFUSING AT 20CC/HR. PATIENT PROVIDED WITH PUDDING FOR HS SNACK AND FRESH WATER. SAFETY PRECAUTIONS REINFORCED. CALL LIGHT IN REACH. WILL CONT TO MONITOR
--- NOTE | 2020-08-14 23:50 | NUR ---
PATIENT APPEARS SLEEPING AT THIS TIME WITH O2 VIA NASAL CANNULA IN PLACE. HOB IS ELEVATED. RESP[S ARE EVEN AND UNLABORED. EYES ARE CLOSED AND APPEARS SLEEPING AT THIS TIME. AZITHROMYCIN INFUSING ORDERED VIA RAC SITE. CALL LIGHT IN REACH. WILL CONT TO MONITOR.
[2020-08-15 04:50] VITALS: BP 158/72
[2020-08-15 07:30] VITALS: BP 158/69
--- NOTE | 2020-08-15 07:30 | NUR ---
PATIENT IN BED AT THIS TIME AWAKE ALERT AND ORIENTED X 3. PATIENT DENIES ANY NEEDS AT THIS TIME. DAILYTENT RATES HER PAIN A 1 OUT OF A SCALE OF 0-10. PATIENT SIDERAILS ARE UP CALL LIGHT WITHIN REACH. PATIENT NALLELY AREA EXCORIATED AND RED AT THIS TIME. PATIENT REPOSITIONED.
--- NOTE | 2020-08-15 12:00 | NUR ---
PATIENT RESTING IN BED AT THIS TIME DENIES ANY NEEDS ALL SAFETY MEASURES ARE IN PLACE CALL LIGHT WITHIN REACH. BABY MONITOR ON PATIENT FOR SAFETY.
[2020-08-15 15:00] VITALS: BP 157/80
--- NOTE | 2020-08-15 16:12 | NUR ---
PATIENT RESTING IN BED WITH EYES CLOSED 02 ON 8L HIGH FLOW. RESPIRATIONS EASY AND UNLABORED AT THIS TIME SIDERAILS UP CALL LIGHT WITHIN REACH.
--- NOTE | 2020-08-15 18:47 | NUR ---
PATIENT RESTING IN BED AT THIS TIME SPO2 IS 97% ON 7 L OF HIGH FLOW O2. PATIENT DENIES ANY SHORTNESS OF BREATH AT THIS TIME.
[2020-08-15 19:20] VITALS: BP 174/89
[2020-08-15 22:00] VITALS: BP 133/84
--- NOTE | 2020-08-15 22:46 | NUR ---
PATIENT INCONT OF LARGE AMT OF URINE AND SMALL AMT OF LOOSE BROWN STOOL. PERINEAL CARE PROVIDED WITH SOAP AND WATER. PERINEAL AREA REMAINS RED AND INFLAMMED-BARRIER CREAM APPLIED. LINENS WERE CHANGED. BP AFTER RECIEVING APRESOLINE-133/84, HR-84. TURNED AND REPOSITIONED. O2 VIANASAL CANNULA AT 7LPM REMAINS IN PLACE. IVF REMAINS PATENT AND INFUSING AT 20CC/HR VIA RAC SITE. SAFETY PRECAUTIONS REINFORCED. CALL LIGHT IN REACH. WILL CONT TO MONITOR.
--- NOTE | 2020-08-16 04:00 | NUR ---
PATIENT RESTING IN BED AT THIS TIME WITH PO2 VIA NASAL CANNULA IN PLACE- 8LPM HIGH FLOW. HOB IS ELEVATED. IV SITE TO RIGHT AC INTACT WITH IVF AT 20CC/HR. REMAINS ON ISOLATION IN NEG PRESSURE ROON FOR COVID. CALL LIGHT IN REACH. WILL CONT TO MONITOR.
[2020-08-16 04:30] VITALS: BP 154/73
[2020-08-16 06:00] LABS: HEMATOCRIT 43.8 % (37.0-47.0); HEMOGLOBIN 14.4 g/dl (12.0-16.0); IMMATURE GRANULOCYTES 2.2 % (0.0-5.0); MEAN CELL VOLUME 89.8 fL CALC (80.0-100.0); MEAN CORPUSCULAR HGB 29.5 pG CALC (26.0-32.0); MEAN CORPUSCULAR HGB CONC 32.9 g/dL CAL (32.0-36.0); NEUT# 12.59 thou/uL (2.00-7.15); RED BLOOD COUNT 4.88 mill/uL (4.20-5.60); RED CELL DISTRI WIDTH 12.6 % (11.5-15.5)
[2020-08-16 06:23] LABS: ALBUMIN 2.9 g/dL (3.2-5.0); ALKALINE PHOSPHATASE 105 u/l (38-126); ANION GAP 9 (6-22 (CALC)); BILIRUBIN, TOTAL 0.6 mg/dL (0.0-1.4); BUN 22 mg/dL (8-23); BUN/CREATININE RATIO 35 (12-20 (CALC)); C-REACTIVE PROTEIN 3.2 mg/dL (0-0.9); CARBON DIOXIDE 33 mmol/l (22-30); CHLORIDE 101 mmol/l (95-108); CPK 57 u/l (30-165); CREATININE 0.6 mg/dL (0.5-1.0); GFR > 60 ML/MIN (>=60 (CALC)); GFR FOR AFR.AMER. > 60 ML/MIN (>=60 (CALC)); POTASSIUM 4.3 mmol/l (3.5-5.1); SGOT/AST 80 u/l (9-36); SODIUM 138 mmol/l (137-146); TOTAL PROTEIN 5.5 g/dL (6.3-8.2)
[2020-08-16 07:14] VITALS: BP 147/83
--- NOTE | 2020-08-16 07:14 | NUR ---
PATIENT IN BED RESTING, ALERT AND ORIENTED AT THIS TIME. PATIENT DENIES ANY PAIN AND RATES PAIN LEVEL A 0 OUT OF PAIN SCALE OF 0-10. NETWORK PROFESSIONAL DONE AT THIS TIME SEE INTERVENTIONS. O2 IN PLACE N/C AND AT 8L HIGH FLOW. PATIENT SPO2 IS 94% AND LUNG SOUNDS REMAIN DIMINISHED. NALLELY-AREA REMAINS LIBIA AND BARRIER CREAM WAS APPLIED AT THIS TIME. ALL SAFETY MESURES ARE IN PLACE CALL LIGHT WITHIN REACH AND PATIENT ROOM BEING MONITORED BY "BABY MONITOR" FOR SAFETY.
--- NOTE | 2020-08-16 12:00 | NUR ---
PATEINT IN BED WATCHING TV PATIENT STATES HER PAIN LEVEL SCORE IS A "3" AND IS GENERLIZED PAIN. 650MG OF SCHEDULED TYLENOL GIVEN AT THIS TIME SIDERAIL UP CALL LIGHT WITHIN REACH 02 REMAINS ON AT 8L HI FLOW.
--- NOTE | 2020-08-16 15:35 | NUR ---
PATIENT RESTING IN BED ALERT AND ORIENTED DENIES ANY NEEDS O2 ON 8L HF. DENIES ALL NEEDS CALL LIGHT IN PLACE SIDERAILS UP X 2
[2020-08-16 16:00] VITALS: BP 176/84
[2020-08-16 19:00] VITALS: BP 153/66
--- NOTE | 2020-08-17 | NUR ---
PATIENT RESTING IN BED AT THIS TIME WITH HIGH LOW O2 AT 8LPM VIA NASAL CANNULA. AZITHROMYCIN INFUSING ORDERED VIA [facility] SITE. SITE REMAINS HEALTHY AT THIS TIME. PATIENT REPOSITIONED IN BED-HOB ELEVATED. PATIENT ON ISOLATION IN NEG PRESSURE ROOM FOR COVID. CALL LIGHT IN REACH. WILL CONT TO MONITOR.
--- NOTE | 2020-08-17 02:06 | NUR ---
PATIENT APPEARS SLEEPING AT THIS TIME WITH HIGH FLOW O2 AT 8LPM. HOB IS ELEVATED-EYES ARE CLOSED. RESPS ARE EVEN AND UNLABORED. IV SITE TO RAC INTACT WITH IVF PATENT AND INFUSING AT 20CC/HR. SITE REMAINS HEALTHY. PATIENT REMAINS ON ISOLATION IN NEG PPRESSURE ROOM. CALL LIGHT IN REACH. WILL CONT TO MONITOR.
[2020-08-17 04:00] VITALS: BP 168/81
[2020-08-17 05:18] LABS: HEMATOCRIT 43.5 % (37.0-47.0); HEMOGLOBIN 14.3 g/dl (12.0-16.0); IMMATURE GRANULOCYTES 3.9 % (0.0-5.0); MEAN CORPUSCULAR HGB 29.2 pG CALC (26.0-32.0); MEAN CORPUSCULAR HGB CONC 32.9 g/dL CAL (32.0-36.0); NEUT# 13.44 thou/uL (2.00-7.15); RED BLOOD COUNT 4.89 mill/uL (4.20-5.60); RED CELL DISTRI WIDTH 12.4 % (11.5-15.5)
[2020-08-17 05:39] LABS: ALBUMIN 2.8 g/dL (3.2-5.0); ALKALINE PHOSPHATASE 100 u/l (38-126); ANION GAP 9 (6-22 (CALC)); BILIRUBIN, TOTAL 0.8 mg/dL (0.0-1.4); BUN 19 mg/dL (8-23); BUN/CREATININE RATIO 30 (12-20 (CALC)); CARBON DIOXIDE 32 mmol/l (22-30); CHLORIDE 99 mmol/l (95-108); CREATININE 0.6 mg/dL (0.5-1.0); GFR > 60 ML/MIN (>=60 (CALC)); GFR FOR AFR.AMER. > 60 ML/MIN (>=60 (CALC)); SGOT/AST 66 u/l (9-36); SODIUM 136 mmol/l (137-146); TOTAL PROTEIN 5.6 g/dL (6.3-8.2)
--- NOTE | 2020-08-17 07:07 | NUR ---
REPORTED BP OF 161/84. RESULTING IN 147/84 UPON REASSESSMENT. TEMP RESULTING IN 98.7. PT STATES THAT SHE FEELS HOT. A/C LOWER AND SHEET REMOVED.IVF INFUSING PER ORDER, SITE APPEARS HEALTHY AND PATENT. PT DENIES ANY NEEDS AT THIS TIME. ALL SAFETY PRECAUTIONS ARE IN PLACE WITH CALL LIGHT IN REACH. AIR/CONTACT PRECAUTIONS ARE IN PLACE. WILL CONTINUE TO MONITOR
--- NOTE | 2020-08-17 08:06 | NUR ---
08/14/20 Patient is seen for repeated sit to stand and was even able to take 2-3 steps with max assist of 1. She practiced some deep breathing and coughing as well . She also received some tapotment to the bases while sitting. She is not clearing secretions well but her vitals did remain stable and functionally, she is slowly progressing. Am Pac is 9
--- NOTE | 2020-08-17 08:10 | NUR ---
RECIEVED REPORT FROM ALEKSEY ADAMES. PT RESTING IN SEMI FOWLERS POSITION UPON ENTERING ROOM. INRODUCED SELF TO PT AND DISCUSSED POC. PT IS A/O X3. ASSESSMENT AND VITALS COMPLETED. BP 132/54, HR 94, O2 93% ON 8.5L NC HIGH FLOW. RESPIRATIONS ARE SHALLOW. HEART RHYTHM IS NORMAL. BOWEL SOUNDS ARE ACTIVE IN ALL QUADRANTS, LAST REPORETD BM 08/17/2020. RADIAL AND PEDAL PUSLES ARE STRONG. #20G IN RAC RUNNING WITH IVF PER ORDER, SITE APPEARS HEALTHY AND PATENT. 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 PT PRESENTS WITH REDNESS IN NALLELY AND BUTTOCK. BARRIER CREAM AND NYSTATIN APPLIED. PT TOELRATED WELL. PT DENIES OF ANY PAIN OR DISCOMFORTS AT THIS TIME. ALL SAFETY PRECAUTIONS ARE IN PLACE WITH CALL LIGHT IN REACH. AIR/CONTACT PRECAUTIONS IN PLACE. WILL CONTINUE TO MONITOR.
[2020-08-17 08:44] VITALS: BP 132/54
--- NOTE | 2020-08-17 09:02 | NUR ---
DR ERVIN AT BEDSIDE DISCUSSING POC WITH PT
--- NOTE | 2020-08-17 10:45 | NUR ---
PT AT BEDSIDE
--- NOTE | 2020-08-17 10:50 | NUR ---
PT AT BEDSIDE ASSITED PT INTO CHAIR. OXYGEN INCREASED TO 9L NC HIGH FLOW. PT SATING 92%. RESPIRATIONS ARE SHALLOW. PT DENIES ANY PAINS OR DISCOMFORTS AT THIS TIME. ALL SAFETY PREACUTIONS ARE IN PLACE WILL CONTINUE TO MONITOR
--- NOTE | 2020-08-17 10:56 | NUR ---
PT note Goals for this pateint are reset for 1 more week She is able to perform bed mobility today with mod assist of 1. She perfromed repeated sit to stand with mod assist of but was reluctant to stay standing. I did want to position her uprigth s we moved t the bedside chair. Her vitals are stable at the time Am pac is unchanged and she would do well to go to short term rehab for transfer training and gait training as tolerated
--- NOTE | 2020-08-17 12:05 | NUR ---
PT RESTING IN RECYLINER. RESPIRATIONS REMAINS SHALLOW. ENCOURAGED USAGE ON I.S.PT RE-EDUCATED. PT VERBAILZED UNDERSTANDING. PT DENIES ANY PAIN OR DISCOMFORTS. ALL SFAETY PRECAUTIONS ARE IN PLACE WITH CALL LIGHT IN REACH.ISOLATION PRECAUTIONS IN PLACE. WILL CONTINUE TO MONITOR.
[2020-08-17 15:15] VITALS: BP 161/84
--- NOTE | 2020-08-17 15:23 | NUR ---
DIFFERENT OPTIONS OF COLOSTOMY BAGS PROVIDED TO PT AND CHOOSE WHICH HER WOULD PREFER. PT STATED " THESE ARE GENERIC BRANDS. I DONT WANT THE GENERIC BRANDS. THE HARSH BRAND I WHAT WORKS. I WILL JUST ORDER THEM MY SELF."
[2020-08-17 17:05] VITALS: BP 147/84
[2020-08-17 19:57] VITALS: BP 166/82
[2020-08-18 00:15] VITALS: BP 165/78
--- NOTE | 2020-08-18 02:05 | NUR ---
PT GIVEN PRN MEDICATION FOR ELEVATED BP OF 165 SYTOLIC. PT BED CHANGED AND CLEANED UP, BARRIER CREAM APPLIED AND PURWICK PLACED. NO FURTHER NEEDS REQUESTED. WILL CONTINUE TO MONITOR.
[2020-08-18 04:30] VITALS: BP 143/67
--- NOTE | 2020-08-18 07:02 | NUR ---
REPORT RECEIVED FROM ALEKSEY IRAHETA. PT RESTING IN BED. NO S/S OF DISTRESS AT THIS TIME. SAFETY PRECAUTIONS IN PLACE. WILL CONITNUE TO MONITOR.
[2020-08-18 08:01] VITALS: BP 129/54
--- NOTE | 2020-08-18 08:01 | NUR ---
PT RESTING IN BED, ALERT AND ORIENTED. RESPIRATIONS ARE EVEN AND UNLABORED ON O2 @ 9L NE FLOW NC, PT HAD O2 OFF WHEN RAIL BENDER ENTERED THE ROOM HOWEVER QUICKLY PUT IT BACK ON, O2 SAT 88% CAME UP TO 92% WITH O2 ON. LUNGS SOUND DIMINISHED. PEDAL PULSES ARE STRONG. PT DENIES ANY PAIN OR DISCOMFORT AT THIS TIME. SAFETY PRECAUTIONS IN PLACE. WILL CONTINUE TO MONITOR.
[2020-08-18 09:13] LABS: HEMATOCRIT 37.9 % (37.0-47.0); HEMOGLOBIN 12.5 g/dl (12.0-16.0); IMMATURE GRANULOCYTES 2.8 % (0.0-5.0); MEAN CELL VOLUME 90.2 fL CALC (80.0-100.0); MEAN CORPUSCULAR HGB 29.8 pG CALC (26.0-32.0); NEUT# 17.27 thou/uL (2.00-7.15); RED BLOOD COUNT 4.2 mill/uL (4.20-5.60); RED CELL DISTRI WIDTH 12.7 % (11.5-15.5)
[2020-08-18 10:05] LABS: ALBUMIN 2.5 g/dL (3.2-5.0); ALKALINE PHOSPHATASE 74 u/l (38-126); ANION GAP 7 (6-22 (CALC)); BILIRUBIN, TOTAL 0.7 mg/dL (0.0-1.4); BUN 27 mg/dL (8-23); BUN/CREATININE RATIO 44 (12-20 (CALC)); C-REACTIVE PROTEIN 2.6 mg/dL (0-0.9); CARBON DIOXIDE 32 mmol/l (22-30); CHLORIDE 101 mmol/l (95-108); CREATININE 0.6 mg/dL (0.5-1.0); GFR > 60 ML/MIN (>=60 (CALC)); GFR FOR AFR.AMER. > 60 ML/MIN (>=60 (CALC)); POTASSIUM 3.7 mmol/l (3.5-5.1); SGOT/AST 44 u/l (9-36); SODIUM 135 mmol/l (137-146)
--- NOTE | 2020-08-18 12:25 | NUR ---
PT RESTING IN BED, FREE FROM DISTRESS. SAFETY PRECAUTIONS IN PLACE. WILL CONTINUE TO MONITOR.
[2020-08-18 14:50] VITALS: BP 142/50
--- NOTE | 2020-08-18 16:04 | NUR ---
PT RESTING IN BED. NO S/S OF DISTRESS AT THIS TIME. SAFETY PRECAUTIONS IN PLACE. WILL CONTINUE TO MONTIOR.
[2020-08-18 19:00] VITALS: BP 153/66
[2020-08-19 04:34] VITALS: BP 158/71
[2020-08-19 07:20] VITALS: BP 141/62
--- NOTE | 2020-08-19 07:20 | NUR ---
ASSESSMENT IS COMPLETED:IV SITE IS FREE FROM REDNESS OR EDEMA. HR IS REG,PULSES ARE STRONG X4, ABD IS SOFT WITH ACTIVE BS, BREATH SOUNDS ARE DIMINISHED. O2 @ 8.5 LITERS WITH NC. PUREWICK IN PLACE. CONTINUE TO OBSERVE AND MONITOR
--- NOTE | 2020-08-19 12:40 | NUR ---
PT IS RELAXING IN BED WITH NOTED IV SITE IS FREE FROM REDNESS OR EDEMA. CONTINEU TO OSBERVE AND MONITOR.
[2020-08-19 16:30] VITALS: BP 144/63
--- NOTE | 2020-08-19 16:30 | NUR ---
PT IS RELAXING IN BED WITH NO DISTRESS NOTED. IV SITE IS FREE FROM REDNESS OR EDEMA.
[2020-08-19 18:55] VITALS: BP 141/60
--- NOTE | 2020-08-19 20:33 | NUR ---
PT RESTING IN BED, NO SIGNS OF DISTRESS NOTED, RESP EVEN AND UNLABORED. PT ALERT AND ORIENTED X3, DISCUSSED POC. PT DENIES ANY NEEDS OR COMPLAINTS AT THIS TIME. NOTED OLD BRUISES AND ABRASIONS TO FACE AND UPPER EXTREMITIES. REDDENED NALLELY AREA NYSTATIN POWDER APPLIED. PT IS ON 9L HI PRISCILLA NC HUMIDIFIED SATS 92%. ASSESSMENT COMPLETED, CALL LIGHT IN REACH,CONTINUE TO MONITOR.
--- NOTE | 2020-08-20 | NUR ---
PT RESTING IN BED WITH EYES CLOSED, IV ANTIBIOTIC INFUSING, NO SIGNS OF DISTRESS NOTED, RESP EVEN AND UNLABORED. CALL LIGHT IN REACH,CONTINUE TO MONITOR.
[2020-08-20 04:25] VITALS: BP 178/66
--- NOTE | 2020-08-20 04:28 | NUR ---
RN AT BEDSIDE TO MEDICATE FOR ELEVATED BP, EDGE BONDER ENTERED ROOM TO DISCUSS WITH PT, PT AGREED. ALSO DISCUSSED NEED FOR NEW IV SITE AND BLOOD WORK. PT DECLINED STATES SHE DOES NOT WANT BLOOD WORK OR IV SITE DONE AT THIS TIME. CALL LIGHT IN REACH,CONTINUE TO MONITOR.
--- NOTE | 2020-08-20 04:34 | NUR ---
ENTERED ROOM TO ADMINISTER BP MEDICATION. ASSESSED V/S TO BE 153/81 IN L.ARM AND 143/81 IN R. ARM, HR88 WILL HOLD PRN APRESALINE AT THIS TIME.
[2020-08-20 04:38] VITALS: BP 143/81
--- NOTE | 2020-08-20 06:07 | NUR ---
PT RESTING IN BED, AGAIN REFUSED LABS AND LINE. PER AM VITALS PT SPO2 89% ON 9L HI PRISCILLA. RT SPO2 USED AND PT SATS 100% ON 02, SLOWLY TITRATED DOWN UNTIL PT REACHED 5L HI PRISCILLA NC WITH AN SPO2 OF 96%, CALL LIGHT IN REACH,CONTINUE TO MONITOR.
[2020-08-20 08:09] VITALS: BP 142/67
--- NOTE | 2020-08-20 08:09 | NUR ---
PT SITTING IN BED. A&O X3. NO DISTRESS NOTED. O2 GERARDO NC @6L HIGH FLOW HUMIDIFIED IN PLACE. O2 % SUSTAINING 92-93%. PUREWICK IN PLACE WITH YELLOW URINE NOTED. PT DENIES ANY PAIN AT THIS TIME. ASSESSMENT COMPLETED. ISOLATION PRECAUTIONS IN PLACE. DISCUSSED POC. CALL LIGHT IN REACH. CONTINUE TO MONITOR.
--- NOTE | 2020-08-20 08:49 | NUR ---
DR MONDRAGON AND Mayra LOVE PHP SOFTWARE ENGINEER AT BEDSIDE DISCUSSING POC
--- NOTE | 2020-08-20 14:20 | NUR ---
PT SITTING IN BED, NO DISTRESS OR NEEDS AT THIS TIME. CALL LIGHT IN REACH. CONTINUE TO MONITOR.
[2020-08-20 15:41] VITALS: BP 138/60
--- NOTE | 2020-08-20 18:00 | NUR ---
NEW IV INITIATED, EXPLAINED TO PT THE RISK OF INFECTION DUE TO OVERDUE IV DATE CHANGE. #22G TO LFA INITIATED, PT TOLERATED WELL. CALL LIGHT IN REACH. CONTINUE TO MONITOR.
[2020-08-20 19:00] VITALS: BP 106/47
[2020-08-21] VITALS (7 sets, daily range): BP systolic 84–118; BP diastolic 31–64
--- NOTE | 2020-08-21 06:23 | NUR ---
pt a/o throughout night. no distress noted or voiced. denies pain. pt refused labs this am. educated on the importance. stated she will do a little later. call smith in reach. bed in lowest position. monitored throughout the night.
--- NOTE | 2020-08-21 08:00 | NUR ---
PT note 08/20/20 Patient is seen for bed mobility and transfer trainin. She is better able to participate and is able to perform bed mobility with min mod assist of 1 with VC to sit EOB. She perfromed SPT and was able to fully stand as well as step 2-3 steps with FWW although she needed at assist with her LUE. She demonstrates less pelvic thrust and improved standing. Am pac is 12 indicating she would do well in short term rehab to continue her gains working on safety, transfer training and gait training.
--- NOTE | 2020-08-21 08:04 | NUR ---
08/21/20 Patient is seen for bed mobility. She is able to participate with supine to sit but was cc fatigue. She is able to move with min mod assist of 1 for her bed mobility and demonstrated greatly improved sitting balance. We will continue treatment later in the day as she has fatigue early monring. Otherwise she is progressin well with Am Pac of 13 indicating she would do well with short term rehab
--- NOTE | 2020-08-21 08:17 | NUR ---
RECEIVED REPORT FROM ALEKSEY HACKETT. PT SITTING UP IN CHAIR UPON ENTERING ROOM. INTRODUCED SELF TO PT AND DISCUSSED POC. PT IS A/O X3 BUT APPEARS LETHARGIC. ASSESSMENT AND VITALS OBTAINED. BP 84/39, HR 97, O2 92% ON 6L NC. RESPIRATIONS ARE EVEN AND UNLABORED ON ROOM AIR. HEART RHYTHM NORMAL. BOWEL SOUNDS ARE ACTIVE IN ALL QUADRANTS, LAST REPORTED BM 08/20/2020. RADIAL AND PEDAL PULSES ARE STRONG. #22G IN LFA RUNNING WITH IVF PER ORDER SITE APPEARS HEALTHY AND PATENT.LEFT SIDED WEAKNESS NOTED ROM PREVIOUS STROKE. PT DENIES OF ANY PAIN OR DISCOMFORTS AT THIS TIME. POULTRY EVISCERATOR INFORMED PT OF NEED OF BLOOD DRAW FOR LABS. PT VERBALIZED UNDERSTANDING. PT REQUEST TO GET BACK INTO BED. ALL SAFETY PRECAUTIONS ARE IN PLACE WITH CALL LIGHT IN REACH.WILL CONTINUE TO MONITOR
--- NOTE | 2020-08-21 08:20 | NUR ---
PHI MENDOZA NOTIFIED OF BP. X1 BOLUS ORDER AND CHANGED OF IVF FROM KVO TO 100ML/HR. PT STATED SHE NEEDED TO USE THE BATHROOM. PT ASSISTED TO BEDSIDE COMODE. PT HAD LARGE BLACK STOOL. LINDA SAMPLE COLLECTED AND SENT TO LAB. PHI MENDOZA NOTFIED. PT ASSISTED BACK INTO BED. RESPIRATIONS ARE EVEN AND UNLABORED. PT PRESENTS TO BE MORE ALERT. ALL SAFETY PRECAUTIONS ARE IN PLACE WIHT CALL LIGHT IN REACH.WILL CONTINUE TO MONITOR
--- NOTE | 2020-08-21 10:08 | NUR ---
REASSESSMENT OF BP RESULTING IN 94/45, HR 95. RESPIRATIONS ARE EVEN AND UNLABORED ON 6L NC HIGH FLOW. PT DENIES ANY NEEDS AT THIS TIME. ALL SAFETY PRECAUTIONS ARE IN PLACE WITH CALL LIGHT IN REACH. WILL CONTINUE TO MONITOR
[2020-08-21 10:14] LABS: IMMATURE GRANULOCYTES 3.2 % (0.0-5.0); MEAN CORPUSCULAR HGB 30.1 pG CALC (26.0-32.0); MEAN CORPUSCULAR HGB CONC 32.3 g/dL CAL (32.0-36.0); PLATELET COUNT 479 thou/uL (130-400); RED BLOOD COUNT 3.16 mill/uL (4.20-5.60); RED CELL DISTRI WIDTH 13.3 % (11.5-15.5)
[2020-08-21 10:22] LABS: HEMATOCRIT 29.4 % (37.0-47.0); HEMOGLOBIN 9.5 g/dl (12.0-16.0)
[2020-08-21 10:23] LABS: MANUAL DIFFERENTIAL YES
[2020-08-21 10:42] LABS: ALBUMIN 2.6 g/dL (3.2-5.0); ALKALINE PHOSPHATASE 71 u/l (38-126); ANION GAP 12 (6-22 (CALC)); C-REACTIVE PROTEIN 1.3 mg/dL (0-0.9); CARBON DIOXIDE 28 mmol/l (22-30); CHLORIDE 101 mmol/l (95-108); CREATININE 0.9 mg/dL (0.5-1.0); GFR 60 ML/MIN (>=60 (CALC)); GFR FOR AFR.AMER. > 60 ML/MIN (>=60 (CALC)); POTASSIUM 4.4 mmol/l (3.5-5.1); SGOT/AST 33 u/l (9-36); SODIUM 137 mmol/l (137-146); TOTAL PROTEIN 4.9 g/dL (6.3-8.2)
[2020-08-21 10:44] LABS: BILIRUBIN, TOTAL 0.4 mg/dL (0.0-1.4); BUN 54 mg/dL (8-23); BUN/CREATININE RATIO 60 (12-20 (CALC))
[2020-08-21 11:26] LABS: C. DIFFICILE TOXIN A&B NEGATIVE (NEGATIVE)
--- NOTE | 2020-08-21 11:26 | NUR ---
PHYSICAL THERAPY AT BEDSIDE
--- NOTE | 2020-08-21 12:27 | NUR ---
PT RESTING IN HIGH FOWLERS POSITION EATING LUNCH. RESPIRATIONS ARE EVEN AND UNLABORED ON 6L NC HIGH FLOW. IVF INFUSING PER ORDER, SITE APPEARS HEALTHY AND PATENT. PT DENIES ANY PAIN OR NEEDS. ALL SAFETY AND ISOALTION PRECAUTIONS ARE IN PLACE WITH CALL LIGHT IN REACH. WILL CONTINUE TO MONITOR
--- NOTE | 2020-08-21 13:46 | NUR ---
DR BRADSHAW AT BEDSIDE DISCUSSING POC WITH PT
--- NOTE | 2020-08-21 15:41 | NUR ---
PT RESTING IN SEMI FOWLERS POSITION. RESPIRATIONS ARE EVEN AND UNLABORED ON 6L NC. IVF INFUSING PER ORDER, SITE APPEARS HEALTHY AND PATENT. PT EDUCATED ON NEEDS TO STOOL SAMPLES X2. PT VERBALIZED UNDERSTANDING. PT DENIES OF ANY PAIN OR DISCOMFORTS AT THIS TIME. ALL SAFETY PRECAUTIONS ARE IN PLACE WITH CALL LIGHT IN REACH. ALL SAFETY AND ISOLATION PRECAUTIONS ARE IN PLACE WIHT CALL LIGHT IN REACH. WILL CONTINUE TO MONITOR
[2020-08-22] VITALS (11 sets, daily range): BP systolic 108–131; BP diastolic 29–63
[2020-08-22 07:19] LABS: MEAN CELL VOLUME 93.1 fL CALC (80.0-100.0); MEAN CORPUSCULAR HGB 30.4 pG CALC (26.0-32.0); MEAN CORPUSCULAR HGB CONC 32.7 g/dL CAL (32.0-36.0); RED BLOOD COUNT 2.17 mill/uL (4.20-5.60); RED CELL DISTRI WIDTH 13.6 % (11.5-15.5)
--- NOTE | 2020-08-22 07:35 | NUR ---
AMMONIUM NITRATE NEUTRALIZER INFORMED BY JOSSELYN IN LAB THAT HGB RESULTED IN 6.6. DR ROEL MADSENFIED. ORDERS TO BE PLACE.
[2020-08-22 07:36] LABS: HEMATOCRIT 20.2 % (37.0-47.0); HEMOGLOBIN 6.6 g/dl (12.0-16.0)
--- NOTE | 2020-08-22 08:07 | NUR ---
RECIEVED REPORT FROM ALEKSEY IRAHETA. PT RESTING IN SEMI CAMPBELL POSITION UPON ENTERING ROOM.INTRODUCED SELF TO PT AND DISCUSSED POC.PT IS A/O X3. ASSESSMENT AND VITALS COMPLETED. BP 108/41, HR 95, O2 94% ON 6L NC. RESPIRATIONS ARE EVEN AND UNLABORED . HEART RYTHM NORMAL. BOWEL SOUNDS ARE ACTIVE IN ALL QUADRANTS, LAST REPORETD BM 08/21/2020. RADIAL AND PEDAL PULSES STRONG. #22G IN LFA RUNNING WITH IVF PER ORDER, SITE APPEARS HEALTHY AND PATENT.PT DOES PRESENT WITH LEFT SIDED WEAKNESS FROOM PIROOR STROKE.REDDENNED BUTTOCKS NOTED. NISTATIN AND BARRIER CREAM APPLIED. PT DENIES OF ANY PAINS OR DISCOMFORTS AT THIS TIME. ALL SAFETY AND ISOALTION PRECAUTIONS FAIZAN CONNELLY PLACE WIHT CALL LIGHT IN REACH. WILL CONTINUE TO MONITOR
[2020-08-22 09:12] LABS: HEMATOCRIT 21.7 % (37.0-47.0); HEMOGLOBIN 7.1 g/dl (12.0-16.0); IMMATURE GRANULOCYTES 2.1 % (0.0-5.0); MEAN CELL VOLUME 93.5 fL CALC (80.0-100.0); MEAN CORPUSCULAR HGB 30.6 pG CALC (26.0-32.0); MEAN CORPUSCULAR HGB CONC 32.7 g/dL CAL (32.0-36.0); NEUT# 19.92 thou/uL (2.00-7.15); RED BLOOD COUNT 2.32 mill/uL (4.20-5.60); RED CELL DISTRI WIDTH 13.6 % (11.5-15.5)
--- NOTE | 2020-08-22 09:30 | NUR ---
.NEW #20G STARTED IN RFA BY Norma YOUSSEF. SITE APPEARS HEALTHY AND PATENT. BLOOD TRANSFUSION CONNECTED WITH IVF INFUSING AT 20ML/HR.PROTONIX DRIP INFUSING IN #22G IN LFA, DITER APPEARS HEALTHY AND PATENT WAITING FOR CALL FROM LAB STATING BLOOD IS READY FOR DIE MOUNTER.ALL SAFETY PRECAUTIONS ARE IN PLACE. WILL CONTINUE TO MONITOR
--- NOTE | 2020-08-22 10:00 | NUR ---
PT REQUEST TO SIGN INFORMED CONSENT IN MORNING. PT EDUACTED ON NPO STATUS. PT VERBALIZED UNDERSTANDING
--- NOTE | 2020-08-22 11:45 | NUR ---
FIRST UNIT OF BLOOD SPIKED BY ALEKSEY DAVIS. PT EDUCATED ON TRANSFUSIONG REACTIONS. PT VERBALIZED UNDERSTANDING. SOIL SCIENCE TECHNICAL OFFICER TO REMAIN WITH PT FOR FIRST 15 MINUETS. ALL SAFETY PRECAUTIONS ARE IN PLACE WITH CALL LIGHT IN REACH. WILL CONTINUE TO MONITOR
--- NOTE | 2020-08-22 12:02 | NUR ---
FIRST 15 MINUETS COMPLETED. VITALS OBTAINED BP 110/29, HR 90. RESPIRATIONS REMAINS EVEN AND UNLABORED ON 6L NC HIGH FLOW. PT DENIES ANY TRANSFUSION REACTIONS. PT RE-EDUCATED. BLOOD INFUSIONG IN #20G IN RFA AT 150, SITE APPEARS HEALTHY AND PATENT. PROTONIX DRIP IN #22G IN LFA INFUSING PER ORDER, SITE APPEARS HEALTHY AND PATENT. ALL SAFETY PERCAUTIONS ARE IN PLACE WIHT CALL LIGHT IN REACH. WILL CONTINUE TO MONITOR
--- NOTE | 2020-08-22 12:49 | NUR ---
FIRST UNIT OF BLOOD INFUSING WITH EASE. PT DENIES OF ANY TRANSFUSION REACTIONS. PT RE-EDUACTED. VITALS OBATINED. REPSIRATIONS ARE EVEN AND UNLABORED ON 6L NC. ALL SFETY PRECAUTIONS ARE IN PLACE. WILL CONTINUE TO MONITOR
--- NOTE | 2020-08-22 13:53 | NUR ---
BLOOD INFUSING WITH EASE. PT DENIES ANY TRANSFUSION REACTIONS. PT RE-EDUCTED. VITALS OBATINED. REPSIRATIONS ARE EVEN AND UNLABORED ON 6L NC HIGH FLOW. NULTELY ADMINISTERED. PT EDUCATED ON NEED OF DRINKING. PT VERBALIZED UNDERSTANDING. ALL SAFETY PRECAUTIONS ARE IN PLACE WITH CALL LIGHT IN REACH. WILL CONTINUE TO MONITOR
--- NOTE | 2020-08-22 14:56 | NUR ---
SECOND UNIT OF BLOOD COMPLETED. PT TOLERATED WELL. PT DENIES ANY TRANSFUSION REACTIONS. SECOND UNIT TO BE STarted
--- NOTE | 2020-08-22 15:34 | NUR ---
SECOND UNIT OF BLOOD SPIKE BY ALEKSEY BARKER. PT EDUCATED ON TRANSION REACTIONS. PT VERBALIZED UNDERSTANDING. PROJECT BUYER TO REMAIN AT BEDSIDE FOR FIRST 15 MINUETS OF INFUSION. RESPIRATIONS ARE EVEN AND UNLABORED ON 6L NC HIGH FLOW. ALL SFETY AND ISOALTION PRECAUTIONS ARE IN PLACE WITH CALL LIGHT IN REACH. WILL CONTINUE TO MONITOR
--- NOTE | 2020-08-22 15:47 | NUR ---
FIRST 15 MINUETS COMPLETED. REPSIRAITONS REMAINS EVEN AND UNLABORED ON 6L NC HIGH FLOW. VITALS OBATINED. PT DENIES ANY TRANSFUSION REACTIONS. PT RE-EDUCATED ON TRANSACTIONS. PT VERBALOIZED UNDERTSNAINDG. BLOOD INFUSING WITH EASE IN #20G RFA, SITE APPEARS HEALTHY AND PATENT. PROTONIX DRIP INFUSING WITH EASE IN LFA, SITE APPEARS HEALTHY AND PATENT. PT DENIES OF ANY NEEDS AT THIS TIME. ALL SAFTEY PRECAUTIONS ARE IN PLACE WITH CALL LIGHT IN REACH. WILL CONTINUE TO MONITOR
--- NOTE | 2020-08-22 16:31 | NUR ---
BLOOD IMFUSING WITH EASE. PT DENIES OF ANY TRANSFUSION REACTIONS. PT RE-EDUCATED. PT VERBALIZED UNDERSTANDING. VITALS OBAINED. RESPIRATIONS ARE EVEN AND UNLABORED ON 5L NC. PT REQUEST FOR ENSURE. SAMPLE DISPLAY PREPARER EDUCATED PT ON NPO STATUS DUE TO SCEDULED EDG. SAMPLE DISPLAY PREPARER EDUCATED PT ON NEED OF DRINKING NULYTELY. PT YET TO DRINK MUCH. PT ENCOUAGED PT TO DRINK MORE. PT VERBALZIED UNDERSTANDING. ALL SAFETY PRECAUTIONS ARE IN PLACE WITH CALL LIGHT IN REACH. WILL CONTINUE TO MONITOR
--- NOTE | 2020-08-22 17:39 | NUR ---
POLYETHYLENE COMBINER NOTIFIED BY LAB THAT H AND H WAS NOT ABLE TO BE DRAWN WHEN BLOOD INFUSING. ORDERED H AND H Q6H X3. AUGUSTINE CALLED. NO ANSWER. VOICEMAIL LEFT. WILL CONTINUE TO MONITOR
--- NOTE | 2020-08-22 18:18 | NUR ---
SECOND UNITY OF BLOOD COMPLETED. RESPIRATIONS REMAINS EVEN AND UNLABORED ON 5L NC HIGH FLOW. PT DENEIS ANY S/S OF REACTION. PT STILL NOT DRANK MUCH OF BOWEL PREP. EQUIPMENT OPERATOR WAGE HAND ENCOURAGED. PT AGGREED. ALL SAFETY PRECAUTIONS ARE IN PLACE WIHT CALL LKIGHT IN REACH. WILL CONTINUE TO MONITOR
[2020-08-22 19:33] LABS: HEMATOCRIT 28.7 % (37.0-47.0); HEMOGLOBIN 9.8 g/dl (12.0-16.0)
--- NOTE | 2020-08-22 20:04 | NUR ---
REPORT RECEIVED FROM NURSE MELANIE. PT RESTING IN BED SUPINE; ASSESSMENT AND VITALS COMPLETE ALERT AND ORIENTED. PT DENIES PAIN. RESPIRATIONS EVEN AND UNLABORED ON ROOM AIR AT REST; SOB UPON EXERTION. PT ON 6 LITERS OF O2 HIGH FLOW. REDDENNING OF BUTTOCK. BARRIER CREAM APPLIED. PT CURRRENTLY NPO. PT ENCOURAGED TO VERBALIZE CONCERNS. STATES UNDERSTANDING. SAFETY MEASURES IN PLACE. CALL LIGHT WITHIN REACH.
[2020-08-23] VITALS (7 sets, daily range): BP systolic 90–129; BP diastolic 36–67
--- NOTE | 2020-08-23 | NUR ---
ALL FLUIDS REMOVED FOR NPO STATUS. PATIENT UNABLE TO TOLERATE BUT ABOUT 30-40% OF AMY.
--- NOTE | 2020-08-23 00:08 | NUR ---
REPORT RECEIVED FROM Nancy ABRAHAM RN AND CARE ASSUMED.
--- NOTE | 2020-08-23 00:42 | NUR ---
RESTING QUIETLY WITH EYES CLOSED IN SEMI-RECUMBENT POSITION. SIDE RAILS UP X 2. CALL GABRIEL WITHIN REACH. BED REMAINS IN LOWEST POSITION. WILL CONTINUE TO MONITOR.
[2020-08-23 00:44] LABS: HEMATOCRIT 28.3 % (37.0-47.0); HEMOGLOBIN 9.5 g/dl (12.0-16.0)
--- NOTE | 2020-08-23 04:51 | NUR ---
REMAINS RESTING QUIETLY WITHOUT COMPLAINT AT THIS TIME. WILL CONTINUE TO MONITOR.
--- NOTE | 2020-08-23 05:34 | NUR ---
REPORT TO Treva HERNANDEZ RN.
--- NOTE | 2020-08-23 09:00 | NUR ---
PT TO EGD THIS MORNING. PT SEEN AWAKE, ALERT, BUT WEAK. LUNGS CLEAR, 5 LPM NC.
--- NOTE | 2020-08-23 13:24 | NUR ---
PT RETURNED FROM EGD, WHERE THREE BLEEDS WERE CAUTERIZED. PT AT REST IN THE BED, NO DISTRESS, NO COMPLAINTS.
--- NOTE | 2020-08-23 15:04 | NUR ---
VANCO TROUGH IS 19 WE WILL GIVE THE 1400 DOSE AND RESTART ON 08/24/20 @0900 1 GRAM Q12H
--- NOTE | 2020-08-23 20:00 | NUR ---
RECEIVED REPORT FROM NURSE SRINIVASAN, PATIENT RESTING IN BED, WITH ONGOING IV NS @ 20CC/HR INFUSING WELL ON RFA G20, AND ONGOING PROTONIX DRIP ON LFA, HOOKED TO O2 @ 5LPM VIA NC, REMAINS ON AIR/COMTACT ISOLATION, DENIES DISCOMFORTS AT THIS TIME, EXERTIONAL DYSPNEA NOTED, CALL LIGHT AT REACH.
[2020-08-24 00:43] LABS: HEMATOCRIT 27.6 % (37.0-47.0); HEMOGLOBIN 9.3 g/dl (12.0-16.0)
--- NOTE | 2020-08-24 01:08 | NUR ---
PATIENT RESTING IN BED WITH EYES CLOSED, REMAINS ON 5LPM O2 VIA NC, NOT IN DISTRESS CALL LIGHT AT REACH.
[2020-08-24 04:10] VITALS: BP 111/54
--- NOTE | 2020-08-24 04:31 | NUR ---
PATIENT RESTING IN BED EYES CLOSED, REMAINS ON O2 @ 5LPM VIA NC, BREATHING SHALOOW UNLABORED, CALL LIGHT AT REACH.
--- NOTE | 2020-08-24 05:33 | NUR ---
PATIENT REFUSED TO REINSERT IV AT THIS TIME, STATED NOT READY RIGHT NOW, WENT BACK TO SLEEP. pATIENT HAS ONGOING PROTONIX DRIP @ 10CC/HR CALL LIGHT AT REACH.
[2020-08-24 07:42] VITALS: BP 128/51
--- NOTE | 2020-08-24 07:47 | NUR ---
ERCIEVED REPORT FROM ALEKSEY LICEA. PT RESTING IN SEMI FOWLERS POSITION UPON ENTERING ROOM. INTRODUCED SELF TO PT AND DISCUSSED POC. PT IS A/OX3. ASSESSMENT AND VITALS COMPLETED. BP 128/51, HR 81, O2 98% ON 5L NC. RESPIRATIONS ARE EVEN AND UNLABORED. HEART RHYTHM IS NORMAL. BOWEL SOUNDS ARE ACTIVE IN ALL QUADRANTS, LAST REPORTED BM 08/23/2020. 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 #22G IN LFA INFUSING WITH PROTONIX DRIP, SITE APPEARS HEALTHY AND PATENT. PT DENIES OF ANY PAIN. BREAKER MACHINE TENDER INFORMED THAT PT REFUSED MORNING LAB. BREAKER MACHINE TENDER ENCOURAGED PT TO HAVE LABS COMPLETED. PT STATED " NOT NOW." PT INCONTINENT OF URINE. BREAKER MACHINE TENDER AND DRUG ENFORCEMENT ADMINISTRATION AGENT PROVIED NALLELY CARE. PT DENIES ANY NEEDS AT THIS ITME. ALL SAFETY AND ISOLATION PRECAUTIONS ARE IN PLACE WITH CALL LIGHT IN REACH. WILL CONTINUE TO MONITOR
--- NOTE | 2020-08-24 09:40 | NUR ---
DR SEVILLA AT BEDSIDE
--- NOTE | 2020-08-24 11:38 | NUR ---
PT RESTING IN HIGH FOLWER POSITION. RESPIRATIONS ARE EVEN AND UNLABORED ON 5L NC. PROTONIX DRIP INFUSING IN #22G IN LFA, SITE APPEARS HEALTHY AND PATENT. PT REQUEST LUNCH. SUGAR CONTROLLER INFORMED PT THAT LUNCH TRAY WILL BE UP SOON. PT VERBALIZED UNDERSTANDING. PT DENIES OF ANY PAINS OR NEEDS AT THIS TIME. ALL SAFETY PRECAUTIONS AR EIN PLACE WITH CALL LIGHT IN REACH. WILL CONTINUE TO MONITOR
--- NOTE | 2020-08-24 12:29 | NUR ---
LAB AT BEDSIDE
--- NOTE | 2020-08-24 13:10 | NUR ---
LAB UNABLE TO OBTAIN BLOOD DRAWL. GLAZING DEPARTMENT SUPERVISOR ATTEMPTED. BLOOD DRAW SUCCESSFUL.PT TOLERATED WELL. LAB CALLED FOR OPERATING ROOM AIDE
--- NOTE | 2020-08-24 14:04 | NUR ---
SHIRRER ATTEMPTED TO START NEW IV. PT REQUEST FOR NEW IV TO BE STATED WHEN BLOOD IS DRAWN. SHIRRER INFORMED PT THAT THE NEXT LABS WHERE IN THE MORNING. PT VERBALIZED UNDERSTANDING AND REQUEST REMAINS. SHIRRER TO INFORM CHIEF EXECUTIVE OR MANAGING DIRECTOR OF PT REQUEST
[2020-08-24 15:00] VITALS: BP 95/32
--- NOTE | 2020-08-24 15:50 | NUR ---
PT RESTING IN SEMI FOWLERS POSITION/ RESPIRATIONS ARE EVEN AND UNLABORED ON 5L NC. PROTINIX DRIP D/C. #22G IN LFA REMAINS SL, SITE APPEARS HEALTHY AND PATENT. PT DENIES OF ANY PAINS OR DISCOMFORTS. REPORTED BP OF 90/52.D.CARTPATT,ANRP NOTFIED. ALL SFAETY AND ISOALTION PRECAUTIONS ARE IN PLACE. WILL CONTINUE TO MONITOR
[2020-08-24 16:18] VITALS: BP 112/68
--- NOTE | 2020-08-24 16:19 | NUR ---
REASSESSMENT OF BP RESULTING IN 112/68. RESPIRATIONS ARE EVEN ADN UNLABORED ON 4L NC SATING 97%. EXTRA BLANKET PROVIDED. PT DENIES ANY NEEDS AT THIS TIME. ALL SAFETY PRECAUTIONS AER IN PLACE WILL CONTINUE TO MONITOR
[2020-08-24 17:03] LABS: HEMATOCRIT 31.1 % (37.0-47.0); HEMOGLOBIN 10.2 g/dl (12.0-16.0)
[2020-08-24 19:00] VITALS: BP 126/56
--- NOTE | 2020-08-24 20:30 | NUR ---
PT RESTING IN BED, NO SIGNS OF DISTRESS NOTED, RESP EVEN AND UNLABORED. PT ALERT AND ORIENTED X3, DISCUSSED POC, PT ON 4L NC SATS 97% TITRATED PT DOWN TO 3L NC, PT VOICES NO NEEDS OR COMPLAINTS AT THIS TIME. ASSESSMENT COMPLETED, CALL LIGHT IN REACH,CONTINUE TO MONITOR.
--- NOTE | 2020-08-25 | NUR ---
PT RESTING IN BED WITH EYES CLOSED, NO SIGNS OF DISTRESS NOTED, RESP EVEN AND UNLABORED. CALL LIGHT IN REACH,CONTINUE TO MONITOR.
[2020-08-25 03:40] VITALS: BP 139/61
--- NOTE | 2020-08-25 04:00 | NUR ---
PT RESTING IN BED WITH EYES CLOSED, NO SIGNS OF DISTRESS NOTED, RESP EVEN AND UNLABORED. CALL LIGHT IN REACH,CONTINUE TO MONITOR.
--- NOTE | 2020-08-25 06:04 | NUR ---
PT RESTING IN BED, TITRATED OXYGEN DOWN FROM 3L TO 2L NC, PT SATS 95%, NO SIGNS OF DISTRESS NOTED, RESP EVEN AND UNLABORED. CALL LIGHT IN REACH,CONTINUE TO MONITOR.
[2020-08-25 06:31] LABS: HEMATOCRIT 27.6 % (37.0-47.0); HEMOGLOBIN 9.3 g/dl (12.0-16.0); IMMATURE GRANULOCYTES 1.3 % (0.0-5.0); MEAN CELL VOLUME 92.9 fL CALC (80.0-100.0); MEAN CORPUSCULAR HGB 31.3 pG CALC (26.0-32.0); MEAN CORPUSCULAR HGB CONC 33.7 g/dL CAL (32.0-36.0); NEUT# 17.58 thou/uL (2.00-7.15); RED BLOOD COUNT 2.97 mill/uL (4.20-5.60); RED CELL DISTRI WIDTH 14.9 % (11.5-15.5)
--- NOTE | 2020-08-25 06:48 | NUR ---
08/24/20 Patient is seen for bed mobility training as well as transfer training and pre gait activities. She continues with left UE hemiplegia. She practicecd rolling to her left side and pushing up to sit with VC. She does so with mod assist of 1 when given time. Her sitting balance is also improved to the point she can maintain sitting balance statically. She is able to repeat sit to stand with FWW. She is able to take 2-3 steps forward with mod assist of 1. She is also able to step STS and perform weight shifts with vitals stable although she remained on O2. She is limited by dyspnea but demonstrates improved endurance as well as function as described above. Her Am Pac is 12 indicating she would greatly benefit from short term rehab to decrease fall risk and maximize function
[2020-08-25 06:55] LABS: ALBUMIN 2.4 g/dL (3.2-5.0); ALKALINE PHOSPHATASE 64 u/l (38-126); ANION GAP 6 (6-22 (CALC)); C-REACTIVE PROTEIN 4.5 mg/dL (0-0.9); CARBON DIOXIDE 31 mmol/l (22-30); CHLORIDE 98 mmol/l (95-108); CREATININE 0.8 mg/dL (0.5-1.0); GFR > 60 ML/MIN (>=60 (CALC)); GFR FOR AFR.AMER. > 60 ML/MIN (>=60 (CALC)); POTASSIUM 4.3 mmol/l (3.5-5.1); SGOT/AST 28 u/l (9-36); SODIUM 131 mmol/l (137-146); TOTAL PROTEIN 4.6 g/dL (6.3-8.2)
[2020-08-25 06:58] LABS: BILIRUBIN, TOTAL 0.7 mg/dL (0.0-1.4); BUN 22 mg/dL (8-23); BUN/CREATININE RATIO 28 (12-20 (CALC))
[2020-08-25 08:10] VITALS: BP 125/34
--- NOTE | 2020-08-25 08:10 | NUR ---
ASSESSMENT IS COMPLETED: IV SITE IS FREE FROM REDNESS OR EDEMA. HR IS REG, PULSES ARE STRONGX4, ABD IS SOFT WITH ACTIVE BS. BREATH SOUNDS ARE CLEAR, BILATERALLY, CONTINUE TO OSBERVE AND MONITOR.
--- NOTE | 2020-08-25 12:45 | NUR ---
PT IS RELAXING IN BED WITH NO DISTRESS NOTED. IV SITE IS FREE FROM REDNESS OR EDEMA.
--- NOTE | 2020-08-25 13:37 | NUR ---
PT NEEDED TO USE THE BEDPAN FOR A BM. LARGE AND CONTINUES TO BE BLACK
[2020-08-25 15:15] VITALS: BP 116/50
--- NOTE | 2020-08-25 16:50 | NUR ---
PT IS RELAXING IN BED WITH NO DISTRESS NOTED. IV SITE IS FREE FROM REDNESS OR EDEMA.
[2020-08-25 18:53] VITALS: BP 144/51
--- NOTE | 2020-08-25 22:03 | NUR ---
PT MEDICATED ORDERS PROVIDE AND ASSESSMENT COMLETED AT THIS TIME. OXYGEN PLACED TO NARES, NO S/O DISTRESS NOTED. CALL LIGHT AT SIDE AND PT REMINDED OF ITS USE. ASSISTED PT TO REPOSITION AND ENCOURAGED HER TO CALL NEEDS ARISE.
--- NOTE | 2020-08-25 23:04 | NUR ---
PT SLEEPING, NO S/O DISTRESS NOTED AT THIS TIME.
--- NOTE | 2020-08-26 02:55 | NUR ---
PT IS SLEEPING AT THIS TIME. NO S/O DISTRESS NOTED. CALL LIGHT AT SIDE.
[2020-08-26 04:00] VITALS: BP 120/47
--- NOTE | 2020-08-26 04:15 | NUR ---
[facility] IS IN WITH PT AT THIS TIME CLEANING HER OF INCONTINENT URINE. NO S/O DISTRESS NOTED AT THIS TIME.
[2020-08-26 08:20] VITALS: BP 89/65
--- NOTE | 2020-08-26 08:20 | NUR ---
ASSESSMENT IS COMPLETED; IV SITE IS FREE FROM REDNESS OR EDEMA. HR IS REG,PULSES ARE STRONG X4, ABD IS SOFT WITH ACTIVE BS. BREATH SOUNDS ARE CLEAR,BILATERALLY, CONTINUE TO OSBERVE AND MONITOR.
[2020-08-26 10:16] LABS: HEMATOCRIT 26.7 % (37.0-47.0); HEMOGLOBIN 8.6 g/dl (12.0-16.0); MEAN CORPUSCULAR HGB 30.9 pG CALC (26.0-32.0); MEAN CORPUSCULAR HGB CONC 32.2 g/dL CAL (32.0-36.0); RED BLOOD COUNT 2.78 mill/uL (4.20-5.60); RED CELL DISTRI WIDTH 15.4 % (11.5-15.5)
[2020-08-26 10:57] LABS: ANION GAP 8 (6-22 (CALC)); BUN 16 mg/dL (8-23); BUN/CREATININE RATIO 20 (12-20 (CALC)); CARBON DIOXIDE 29 mmol/l (22-30); CHLORIDE 100 mmol/l (95-108); CREATININE 0.8 mg/dL (0.5-1.0); GFR > 60 ML/MIN (>=60 (CALC)); GFR FOR AFR.AMER. > 60 ML/MIN (>=60 (CALC)); MAGNESIUM 1.8 mg/dL (1.6-2.3); POTASSIUM 4.3 mmol/l (3.5-5.1); SODIUM 133 mmol/l (137-146)
[2020-08-26 11:52] VITALS: BP 92/38
--- NOTE | 2020-08-26 12:50 | NUR ---
PT IS RELAXING IN BED WITH NO DISTRESS NOTED. IV SITE IS FREE FROM REDNESS OR EDEMA.
[2020-08-26 16:00] VITALS: BP 120/27
--- NOTE | 2020-08-26 16:23 | NUR ---
PT note Patient is seen in PM. We concentrated on bed mobility including rolling STS for pressure relief. She demonstrated this x 10 each side. She became dyspneic and dizzy. I deferred further intervention until AM as I think she may be repsonding to the exercise and low Hgb. Am Pac score is still improving slowly as funcitonally she is stronger and bed mobilty improving (am pac of 12)
--- NOTE | 2020-08-26 16:50 | NUR ---
PT IS RELAXING I NBED WITH NO DISTRESS NOTED. IV SITE IS FREE FROM REDNESS OR EDEMA.
[2020-08-26 18:40] VITALS: BP 113/45
[2020-08-26 19:32] LABS: HEMATOCRIT 25.1 % (37.0-47.0); HEMOGLOBIN 8.4 g/dl (12.0-16.0)
--- NOTE | 2020-08-26 20:40 | NUR ---
PATIENT AWAKE, ALERT, AND ORIENTED, NO C/O PAIN OR DISTRESS NOTED. PATIENT WITH 02 ON VIA NC, NO C/O SOB. FULL ASSESSMENT COMPLETED, CALL LIGHT WITHIN, BED IN LOWEST POSITION.
[2020-08-27 03:00] VITALS: BP 104/44
[2020-08-27] MEDS ORDERED: BOUDREAUXS BUTT TOP (07:43)
[2020-08-27] MEDS ORDERED: PROTONIX40 MG PO ×2 (07:43→10:42)
[2020-08-27 07:45] VITALS: BP 119/45
--- NOTE | 2020-08-27 07:45 | NUR ---
ASSESSMENT IS COMPLETED: IV SITE IS FREE FROM REDNESS OR EDEMA. HR IS REG,PULSES ARE STRONG X4, ABD IS SOFT WITH ACTIVE BS. BREATH SOUNDS ARE CLEAR,BILATERALLY. CONTINUE TO OBSERVED AND MONITOR.
[2020-08-27 09:25] LABS: HEMATOCRIT 26.8 % (37.0-47.0); HEMOGLOBIN 8.7 g/dl (12.0-16.0); IMMATURE GRANULOCYTES 0.7 % (0.0-5.0); MEAN CELL VOLUME 96.4 fL CALC (80.0-100.0); MEAN CORPUSCULAR HGB 31.3 pG CALC (26.0-32.0); MEAN CORPUSCULAR HGB CONC 32.5 g/dL CAL (32.0-36.0); NEUT# 13.56 thou/uL (2.00-7.15); RED BLOOD COUNT 2.78 mill/uL (4.20-5.60); RED CELL DISTRI WIDTH 15.5 % (11.5-15.5)
[2020-08-27] MEDS ORDERED: CARAFATE1 GM PO (10:42)
[2020-08-27 11:31] VITALS: BP 106/41
--- NOTE | 2020-08-27 12:09 | NUR ---
SPEAKING WITH [facility]. WAS TOLD BY [facility] NOT TO BRING HER WC OR WALKER., WILL BRING OTHER THINGS.
--- NOTE | 2020-08-27 12:20 | NUR ---
PT IS RELAXING IN BED WITH NO DISTTESS NOTED, EXCITED ABOUT GOING TO [facility] TODAY.
--- NOTE | 2020-08-27 15:40 | NUR ---
IV SITE DISCONTINEUD CATHETER INTACT. DISCHARGE INSTRUCTIONS PLACED IN A PACKET.
[2020-08-27 16:00] VITALS: BP 109/58
--- NOTE | 2020-08-27 17:28 | NUR ---
CALLED REPORT TO [facility]. AND INFORMED OF THE PT COMING AND GAVE REPORT.
--- NOTE | 2020-08-27 17:32 | NUR ---
INFORMED [facility]. RE: PT BEING MOVED TO [facility]
--- NOTE | 2020-08-29 12:02 | NUR ---
SPOKE WITH [facility], STATED "[facility] DID NOT HAVE THIS PT HERE". INFORMED THAT SHE WAS NEGATIVE WOULD BE [facility] NON COVID UNIT. WILL TRY AGAIN.
== END 2020-08-27 17:10 | DRG 177 ==
LOC: ED 17:47 → ED-I 23:40 → ED 08-07 00:16 → ICU 08-07 00:17 → MS2 08-07 16:30
PROVIDERS: Internal Medicine; Nurse Practitioner; Physician Assistant; Surgery; ADMIT Internal Medicine; ATTEND Internal Medicine
PROC: XW033E5 Introduction of Remdesivir Anti-infective into Peripheral Vein, Percutaneous Approach, New Technology Group 5 (ICD-10-PCS; principal; 2020-08-13)
PROC: 30233N1 Transfusion of Nonautologous Red Blood Cells into Peripheral Vein, Percutaneous Approach (ICD-10-PCS; 2020-08-22)
PROC: 30233N1 Transfusion of Nonautologous Red Blood Cells into Peripheral Vein, Percutaneous Approach (ICD-10-PCS; 2020-08-22)
PROC: 0W3P8ZZ Control Bleeding in Gastrointestinal Tract, Via Natural or Artificial Opening Endoscopic (ICD-10-PCS; 2020-08-23)
PROC: 0DJD8ZZ Inspection of Lower Intestinal Tract, Via Natural or Artificial Opening Endoscopic (ICD-10-PCS; 2020-08-23)
DX: U07.1 COVID-19 (principal); J12.89 Other viral pneumonia; J96.01 Acute respiratory failure with hypoxia; K26.4 Chronic or unspecified duodenal ulcer with hemorrhage; R53.1 Weakness; N30.90 Cystitis, unspecified without hematuria; I10 Essential (primary) hypertension; I25.10 Atherosclerotic heart disease of native coronary artery without angina pectoris; I95.9 Hypotension, unspecified; K44.9 Diaphragmatic hernia without obstruction or gangrene; I25.5 Ischemic cardiomyopathy; J45.909 Unspecified asthma, uncomplicated; I69.934 Monoplegia of upper limb following unspecified cerebrovascular disease affecting left non-dominant side; M19.90 Unspecified osteoarthritis, unspecified site; R19.7 Diarrhea, unspecified; B96.20 Unspecified Escherichia coli [E. coli] as the cause of diseases classified elsewhere; W18.30XA Fall on same level, unspecified, initial encounter; Y92.009 Unspecified place in unspecified non-institutional (private) residence as the place of occurrence of the external cause
CPT/HCPCS: G0378; J1650; P9016; Q9967; S0164